=== PATIENT | female | born 1945 | race Caucasian/White ===

== ENCOUNTER 2016-03-14 18:08 | Inpatient (IN) | payer MEDICARE, BC ==
[2016-03-14] MEDS ORDERED: Aspirin Low Dose CHEW TAB* 81 MG PO ONE (18:42)
--- NOTE | 2016-03-14 19:02 | RAD ---
HISTORY: Chest pain COMPARISONS: None relevant VIEWS:1: Single frontal portable view of the chest at 7:01 PM FINDINGS: LINES AND TUBES: None. CARDIOMEDIASTINAL SILHOUETTE: The cardiomediastinal silhouette is normal for portable technique. PLEURA: The costophrenic angles are sharp. No pleural abnormalities are noted. LUNG PARENCHYMA: The lungs are clear. ABDOMEN: The upper abdomen is clear. There is no subphrenic gas. BONES AND SOFT TISSUES: No bone or soft tissue abnormalities are noted. IMPRESSION: NO ACTIVE CARDIOPULMONARY DISEASE.
[2016-03-14 19:07] LABS: Hematocrit 41 % (35-47); Hemoglobin 13.4 g/dl (12.0-16.0); Mean Corpuscular HGB Conc 33 g/dl (31-36); Mean Corpuscular Hemoglobin 30 pg (27-31); Mean Corpuscular Volume 91 fL (80-97); Mean Platelet Volume 10 um3 (7.4-10.4); Red Blood Count 4.45 10^6/ul (4.0-5.4); Red Cell Distribution Width 14 % (10.5-15); White Blood Count 13.7 10^3/ul (3.5-10.8)
[2016-03-14 19:23] LABS: Albumin 4.1 g/dL (3.2-5.2); BUN/Creatinine Ratio 19.7 (8-20); Calcium 9.5 mg/dL (8.6-10.3); EGFR Non-African American 81.6 (>60); Globulin 2.2 g/dL (2-4); Total Bilirubin 0.4 mg/dL (0.2-1.0); Total Protein 6.3 g/dL (6.4-8.9)
[2016-03-14 19:24] LABS: Potassium 4.2 mmol/L (3.5-5.0)
[2016-03-14 19:26] LABS: Troponin I 0.1 ng/mL (<0.04)
[2016-03-14] MEDS ORDERED: Nitroglycerin 2% OINT* 1 GM PAK TOPICAL ONE (19:31)
[2016-03-14] MEDS ORDERED: Heparin DRIP 25,000 UNITS(*) 25,000 UNITS/500 ML BAG ONE (19:40)
[2016-03-14] MEDS ORDERED: Heparin VIAL(*) 5000 UNITS/ML VIAL (FIVE THOUSAND) ONE (19:40)
[2016-03-14] MEDS: Heparin DRIP 25,000 UNITS(*) 25,000 UNITS/500 ML BAG IVPB ONE (19:49)
[2016-03-14] MEDS ORDERED: Heparin VIAL(*) 5000 UNITS/ML VIAL (FIVE THOUSAND) IV SCH ×2 (20:00→22:00)
[2016-03-14] MEDS ORDERED: nitroGLYCERIN DRIP* 250 ML ONE ×2 (20:48→21:26)
[2016-03-14] MEDS ORDERED: Metoprolol Tartrate IV* 1 MG/ML 5 ML VIAL ONE ×2 (20:49→22:28)
[2016-03-14] MEDS ORDERED: nitroGLYCERIN DRIP* 25,000 MCG in PREMIX* 0 ML IV SCH (21:00)
[2016-03-14] MEDS ORDERED: Morphine INJ* 2 MG/ML 1 ML CARPUJECT IV ONE (21:00)
[2016-03-14] MEDS ORDERED: LORazepam INJ* 2 MG/ML 1 ML VIAL IV PUSH ONE (21:00)
[2016-03-14] MEDS ORDERED: Metoprolol Tartrate IV* 1 MG/ML 5 ML VIAL IV ONE ×2 (21:01→21:09)
[2016-03-14] MEDS ORDERED: Morphine INJ* 2 MG/ML 1 ML CARPUJECT ONE (21:01)
[2016-03-14] MEDS ORDERED: Ticagrelor* 90 MG TAB PO ONE ×2 (21:02→21:03)
[2016-03-14] MEDS ORDERED: Morphine INJ* 10 MG/ML 1 ML CARPUJECT IV ONE (21:03)
[2016-03-14 21:09] LABS: Hematocrit 40 % (35-47); Hemoglobin 13.5 g/dl (12.0-16.0); Mean Corpuscular HGB Conc 33 g/dl (31-36); Mean Corpuscular Hemoglobin 30 pg (27-31); Mean Corpuscular Volume 91 fL (80-97); Mean Platelet Volume 10 um3 (7.4-10.4); Red Blood Count 4.45 10^6/ul (4.0-5.4); Red Cell Distribution Width 13 % (10.5-15); White Blood Count 17.6 10^3/ul (3.5-10.8)
[2016-03-14] MEDS ORDERED: Atorvastatin* 80 MG TAB PO ONE (21:17)
[2016-03-14] MEDS ORDERED: Lidocaine 1% INJ* 10 MG/ML 30 ML SDV ONE (21:25)
[2016-03-14] MEDS ORDERED: Midazolam* 1 MG/ML 5 ML VIAL (5 MG) ONE (21:25)
[2016-03-14] MEDS ORDERED: Iohexol 350 (CONTRAST) 200 ML MDV IV ONE ×2 (21:25→22:19)
[2016-03-14] MEDS ORDERED: fentaNYL* 50 MCG/ML 2 ML VIAL (100 MCG VIAL) ONE (21:25)
[2016-03-14] MEDS ORDERED: Heparin 2 UNITS/ML IVPREMIX* 3,000 ML IV ONE (21:25)
[2016-03-14 21:26] LABS: Albumin 3.9 g/dL (3.2-5.2); BUN/Creatinine Ratio 17.8 (8-20); Calcium 9.5 mg/dL (8.6-10.3); EGFR African American 101.7 (>60); Globulin 2.7 g/dL (2-4); Potassium 3.6 mmol/L (3.5-5.0); Total Bilirubin 0.4 mg/dL (0.2-1.0); Total Protein 6.6 g/dL (6.4-8.9)
[2016-03-14 21:33] LABS: Troponin I 0.48 ng/mL (<0.04)
[2016-03-14] MEDS ORDERED: Acetaminophen TAB* 325 MG PO PRN ×2 (21:37→23:12)
[2016-03-14] MEDS ORDERED: Ondansetron INJ* 2 MG/ML VIAL IV PRN (21:37)
[2016-03-14] MEDS ORDERED: Heparin DRIP 25,000 UNITS(*) 25,000 UNITS/500 ML BAG IVPB SCH (21:45)
[2016-03-14] MEDS ORDERED: Bivalirudin(*) 250 MG VIAL ONE (22:28)
--- NOTE | 2016-03-14 22:59 | ED ---
Christian Cooper Erika, scribed for Shaheen Denson MD on 03/14/16 at 1828 . HPI Chest Pain - HPI Summary HPI Summary: Patient is a 70-year-old female presenting to the ED with a CC of chest tightness with exertion, worse for the past week. Pt reports she has had similar symptoms in the past, but this past week they have been more frequent and more intense. She also reports that starting yesterday, pt also developed chest tightness once without exertion, but it quickly resolved. Pain is described as burning and is located mostly midsternal, but also across the bilateral anterior chest. Pain radiates straight through to her back. Pt was seen by her PCP yesterday, who prescribed NTG and recommended pt start taking a daily aspirin. She reports that tonight she took NTG, which at first did not alleviate the pain, but after EMS gave her another dose en route, pain improved. Pt reports a cough unchanged form baseline, and denies difficulty breathing. Pt has a stress test scheduled for tomorrow evening. Pt takes atenolol 25 mg 1x daily for HTN. Pt denies FHx stroke, cardiac disease. Pt does not smoke. - History of Current Complaint Chief Complaint: EDChestPainROMI Time Seen by Provider: 03/14/16 18:17 Hx Obtained From: Patient Onset/Duration: Started Days Ago, Atraumatic, Still Present Timing: Intermittent Initial Severity: Moderate Current Severity: Moderate Pain Intensity: 7 Pain Scale Used: 0-10 Numeric Chest Pain Location: Mid Sternal, Left Anterior, Right Anterior Chest Pain Radiates: Yes Chest Pain Radiates To:: Back Character: Burning Aggravating Factor(s): Exertion Alleviating Factor(s): NTG 123 Associated Signs and Symptoms: Negative: Shortness of Breath - Allergy/Home Medications Allergies/Adverse Reactions: Allergies Allergy/AdvReac Type Severity Reaction Status Date / Time Codeine Allergy Severe GI Upset Verified 03/14/16 18:26 Metronidazole [From Flagyl] Allergy Severe Rash Verified 03/14/16 18:26 Penicillins [PCN] Allergy Severe Rash Verified 03/14/16 18:26 Home Medications: Home Medications Aspirin Low Dose CHEW TAB* [Aspirin Low Dose TAB*] 81 mg PO DAILY 03/14/16 [ History Confirmed 03/14/16] PMH/Surg Hx/FS Hx/Imm Hx Cardiovascular History: Reports: Hx Hypertension - Cancer History Hx Radiation Therapy: No Infectious Disease History: No Infectious Disease History: Denies: Hx Clostridium Difficile, Hx Hepatitis, Hx Human Immunodeficiency Virus (HIV), Hx of Known/Suspected MRSA, Hx Shingles, Hx Tuberculosis, Hx Known/ Suspected VRE, Hx Known/Suspected VRSA, History Other Infectious Disease, Traveled Outside the [place] in Last 30 Days - Family History Known Family History: Positive: Hypertension Negative: Cardiac Disease Family History: Denies FHx stroke - Social History Alcohol Use: Rare Hx Substance Use: No Substance Use Type: Reports: None Hx Tobacco Use: No Smoking Status (MU): Never Smoked Tobacco Review of Systems Positive: Chest Pain - radiating to the back Positive: Cough - at baseline. Negative: Shortness Of Breath All Other Systems Reviewed And Are Negative: Yes Physical Exam - Summary Physical Exam Summary: General: Comfortable, pleasant, alert, no distress HEENT: Moist mucosa, TAVO Neck: Soft, supple, no adenopathy, no edema Heart: S1, S2, RRR. No murmurs, rubs, or gallops Lungs: Clear, breathing comfortably. No wheezes or rales Abdomen: Soft, flat, non-tender Extremities: No edema, no calf tenderness Neurological: A&Ox3 Psych: Logical, coherent Triage Information Reviewed: Yes Vital Signs On Initial Exam: Initial Vitals Temp Pulse Resp BP Pulse Ox 99.0 F 82 17 155/72 99 03/14/16 18:18 03/14/16 18:18 03/14/16 18:18 03/14/16 18:18 03/14/16 18:18 Vital Signs Reviewed: Yes Diagnostics - Vital Signs Vital Signs Temp Pulse Resp BP Pulse Ox 03/14/16 18:18 99.0 F 82 17 155/72 99 - Laboratory Lab Results: Lab Results 03/14/16 03/14/16 03/14/16 Range/Units 18:30 18:30 20:15 WBC 13.7 H (3.5-10.8) 10^3/ul RBC 4.45 (4.0-5.4) 10^6/ul Hgb 13.4 (12.0-16.0) g/dl Hct 41 (35-47) % MCV 91 (80-97) fL MCH 30 (27-31) pg MCHC 33 (31-36) g/dl RDW 14 (10.5-15) % Plt Count 227 (150-450) 10^3/ul MPV 10 (7.4-10.4) um3 Neut % (Auto) 80.6 (38-83) % Lymph % (Auto) 11.8 L (25-47) % Villalba % (Auto) 6.2 (1-9) % Eos % (Auto) 0.5 (0-6) % Baso % (Auto) 0.9 (0-2) % Absolute Neuts (auto) 11.0 H (1.5-7.7) 10^3/ul Absolute Lymphs (auto) 1.6 (1.0-4.8) 10^3/ul Absolute Monos (auto) 0.8 (0-0.8) 10^3/ul Absolute Eos (auto) 0.1 (0-0.6) 10^3/ul Absolute Basos (auto) 0.1 (0-0.2) 10^3/ul Absolute Nucleated RBC 0.01 10^3/ul Nucleated RBC % 0.1 INR (Anticoag Therapy) (0.89-1.11) APTT > 212.0 H* (26.0-36.3) seconds Sodium 139 (133-145) mmol/L Potassium 4.2 (3.5-5.0) mmol/L Chloride 106 (101-111) mmol/L Carbon Dioxide 21 L (22-32) mmol/L Anion Gap 12 H (2-11) mmol/L BUN 14 (6-24) mg/dL Creatinine 0.71 (0.51-0.95) mg/dL Est GFR ( Amer) 105.0 (>60) Est GFR (Non-Af Amer) 81.6 (>60) BUN/Creatinine Ratio 19.7 (8-20) Glucose 159 H (70-100) mg/dL Calcium 9.5 (8.6-10.3) mg/dL Total Bilirubin 0.40 (0.2-1.0) mg/dL AST 34 (13-39) U/L ALT 17 (7-52) U/L Alkaline Phosphatase 62 (34-104) U/L Total Creatine Kinase 35 (10-223) U/L CK-MB (CK-2) 2.0 (0.6-6.3) ng/mL Myoglobin (14.3-65.8) ng/mL Troponin I 0.10 H* (<0.04) ng/mL B-Natriuretic Peptide ( - 100) pg/mL Total Protein 6.3 L (6.4-8.9) g/dL Albumin 4.1 (3.2-5.2) g/dL Globulin 2.2 (2-4) g/dL Albumin/Globulin Ratio 1.9 (1-3) LDL Cholesterol Direct mg/dL 03/14/16 03/14/16 03/14/16 Range/Units 20:55 20:55 20:55 WBC 17.6 H (3.5-10.8) 10^3/ul RBC 4.45 (4.0-5.4) 10^6/ul Hgb 13.5 (12.0-16.0) g/dl Hct 40 (35-47) % MCV 91 (80-97) fL MCH 30 (27-31) pg MCHC 33 (31-36) g/dl RDW 13 (10.5-15) % Plt Count 252 (150-450) 10^3/ul MPV 10 (7.4-10.4) um3 Neut % (Auto) (38-83) % Lymph % (Auto) (25-47) % Villalba % (Auto) (1-9) % Eos % (Auto) (0-6) % Baso % (Auto) (0-2) % Absolute Neuts (auto) (1.5-7.7) 10^3/ul Absolute Lymphs (auto) (1.0-4.8) 10^3/ul Absolute Monos (auto) (0-0.8) 10^3/ul Absolute Eos (auto) (0-0.6) 10^3/ul Absolute Basos (auto) (0-0.2) 10^3/ul Absolute Nucleated RBC 10^3/ul Nucleated RBC % INR (Anticoag Therapy) 0.90 (0.89-1.11) APTT > 212.0 H* (26.0-36.3) seconds Sodium 138 (133-145) mmol/L Potassium 3.6 (3.5-5.0) mmol/L Chloride 107 (101-111) mmol/L Carbon Dioxide 20 L (22-32) mmol/L Anion Gap 11 (2-11) mmol/L BUN 13 (6-24) mg/dL Creatinine 0.73 (0.51-0.95) mg/dL Est GFR ( Amer) 101.7 (>60) Est GFR (Non-Af Amer) 79.0 (>60) BUN/Creatinine Ratio 17.8 (8-20) Glucose 117 H (70-100) mg/dL Calcium 9.5 (8.6-10.3) mg/dL Total Bilirubin 0.40 (0.2-1.0) mg/dL AST 31 (13-39) U/L ALT 17 (7-52) U/L Alkaline Phosphatase 65 (34-104) U/L Total Creatine Kinase 35 (10-223) U/L CK-MB (CK-2) 2.8 (0.6-6.3) ng/mL Myoglobin 33.1 (14.3-65.8) ng/mL Troponin I 0.48 H* (<0.04) ng/mL B-Natriuretic Peptide ( - 100) pg/mL Total Protein 6.6 (6.4-8.9) g/dL Albumin 3.9 (3.2-5.2) g/dL Globulin 2.7 (2-4) g/dL Albumin/Globulin Ratio 1.4 (1-3) LDL Cholesterol Direct 141 mg/dL 03/14/16 Range/Units 20:55 WBC (3.5-10.8) 10^3/ul RBC (4.0-5.4) 10^6/ul Hgb (12.0-16.0) g/dl Hct (35-47) % MCV (80-97) fL MCH (27-31) pg MCHC (31-36) g/dl RDW (10.5-15) % Plt Count (150-450) 10^3/ul MPV (7.4-10.4) um3 Neut % (Auto) (38-83) % Lymph % (Auto) (25-47) % Villalba % (Auto) (1-9) % Eos % (Auto) (0-6) % Baso % (Auto) (0-2) % Absolute Neuts (auto) (1.5-7.7) 10^3/ul Absolute Lymphs (auto) (1.0-4.8) 10^3/ul Absolute Monos (auto) (0-0.8) 10^3/ul Absolute Eos (auto) (0-0.6) 10^3/ul Absolute Basos (auto) (0-0.2) 10^3/ul Absolute Nucleated RBC 10^3/ul Nucleated RBC % INR (Anticoag Therapy) (0.89-1.11) APTT (26.0-36.3) seconds Sodium (133-145) mmol/L Potassium (3.5-5.0) mmol/L Chloride (101-111) mmol/L Carbon Dioxide (22-32) mmol/L Anion Gap (2-11) mmol/L BUN (6-24) mg/dL Creatinine (0.51-0.95) mg/dL Est GFR ( Amer) (>60) Est GFR (Non-Af Amer) (>60) BUN/Creatinine Ratio (8-20) Glucose (70-100) mg/dL Calcium (8.6-10.3) mg/dL Total Bilirubin (0.2-1.0) mg/dL AST (13-39) U/L ALT (7-52) U/L Alkaline Phosphatase (34-104) U/L Total Creatine Kinase (10-223) U/L CK-MB (CK-2) (0.6-6.3) ng/mL Myoglobin (14.3-65.8) ng/mL Troponin I (<0.04) ng/mL B-Natriuretic Peptide 28 ( - 100) pg/mL Total Protein (6.4-8.9) g/dL Albumin (3.2-5.2) g/dL Globulin (2-4) g/dL Albumin/Globulin Ratio (1-3) LDL Cholesterol Direct mg/dL Result Diagrams: 03/14/16 20:55 03/14/16 20:55 Lab Statement: Any lab studies that have been ordered have been reviewed, and results considered in the medical decision making process. - Radiology CXR Radiology Interpretation Completed By: Radiologist - IMPRESSION: NO ACTIVE CARDIOPULMONARY DISEASE. - EKG 18:14 Cardiac Rate: NL - at 76 bpm EKG Rhythm: Sinus Rhythm Ectopy: PACs EKG Interpretation: Questionable ST depression V4-V6 19:34 Cardiac Rate: Tachycardia - at 106 bpm EKG Rhythm: Sinus Tachycardia EKG Interpretation: Still shows ST flattening and questionable depression in lateral leads 20:48 Cardiac Rate: NL - at 93 bpm EKG Rhythm: Sinus Rhythm EKG Interpretation: ST elevations in aVR and V1, worsening depressions inferior lateral leads Re-Evaluation - Re-Evaluation First Eval Re-Evaluation Time: 19:39 Comment: Discussed lab and imaging results and need for admission. Pt denies any pain at this time. Second Eval Re-Evaluation Time: 20:56 Comment: She started having chest pain again as Jude Colbert was taking a history. Repeat EKG shows ST elevations in aVR and V1, and worsening depressions inferior lateral leads. STEMI called at this time Chest Pain Course/Dx - Course Assessment/Plan: She had a concerning history given that the chest pain was exertional and crescendo in nature. She presented asymptomatic, but her troponin had increased 0.10. 2 EKGs did not support an DC, however, when she was waiting for admission she had another episode, repeat EKG had changed significantly. Dr. Tipton was immediately called, and we are aggressively treating with Nitro drip, Lopressor, morphine, and Brilinta added to the prior regimen. - Diagnoses Provider Diagnoses: Unstable angina, Acute DC During the Visit The Following Alert/Code Occurred: STEMI - Provider Notifications Discussed Care Of Patient With: Dr. Carrasco (cardiology) at 20:01 - will consult in the morning. Dr. Anguiano (hospitalist) at 20:17 - agrees to admit. Dr. Tipton (interventionalist) at 20:59 - would like us to add Brilinta Instructed by Provider To: Admit As Inpatient - Critical Care Time Critical Care Time: 30-74 min - 60 minutes Discharge - Discharge Plan Condition: Stable Disposition: ADMITTED TO [facility] The documentation as recorded by the Christian vidal Erika accurately reflects the service I personally performed and the decisions made by me, Shaheen Denson MD.
[2016-03-14] MEDS ORDERED: Zolpidem TAB* 5 MG PO PRN (23:12)
[2016-03-14] MEDS ORDERED: fentaNYL* 50 MCG/ML 2 ML VIAL (100 MCG VIAL) IV PRN (23:12)
[2016-03-14] MEDS ORDERED: Docusate CAP* 100 MG PO PRN (23:12)
[2016-03-14] MEDS ORDERED: Nitroglycerin TAB 0.4 MG* 0.4 MG TAB SL PRN (23:12)
[2016-03-14] MEDS ORDERED: NS 0.9% 1000 ML* 1,000 ML IV SCH (23:15)
[2016-03-15 05:50] LABS: Albumin 3.7 g/dL (3.2-5.2); BUN/Creatinine Ratio 14.1 (8-20); Calcium 9.1 mg/dL (8.6-10.3); EGFR African American 118.3 (>60); Globulin 2.2 g/dL (2-4); Potassium 3.6 mmol/L (3.5-5.0); Total Bilirubin 0.8 mg/dL (0.2-1.0); Total Protein 5.9 g/dL (6.4-8.9)
[2016-03-15 05:54] LABS: Troponin I 1.51 ng/mL (<0.04)
[2016-03-15] MEDS ORDERED: Metoprolol Tartrate TAB* 25 MG PO SCH ×2 (07:30→09:00)
--- NOTE | 2016-03-15 07:45 | HP ---
HISTORY AND PHYSICAL: DATE OF ADMISSION: 03/14/2016 PRIMARY CARE PHYSICIAN: Dr. Iniguez. CONSULTING INTERVENTIONALIST: Dr. Tipton. ATTENDING PHYSICIAN: Walter Anguiano MD * (dictated by PRITESH Arellano) CHIEF COMPLAINT: Chest pain. HISTORY OF PRESENTING ILLNESS: Ms Nguyễn is a 60-year-old female patient. She has a history of GERD, hypertension, glaucoma, and history of macular degeneration. She comes into the ER today stating that over the last week she has had progressive worsening chest discomfort with exertion. She has noticed that with minimal exertion now she has a significant amount of chest discomfort and pressure across the chest and goes down the left arm into the jaw, at times sometimes she becomes nauseated and feels short of breath. She saw her primary yesterday. She was not exhibiting the symptoms but she noticed there was concern she had subtle EKG change and she was set up for a stress test according to the patient. The patient today went to [facility] and walking back [place] [employer], she developed a chest pressure, when she sat down in a friend's car and waiting for her to pick her up, the pressure went away, but then she noticed just getting up to the phone this afternoon, she had crushing chest pressure, she had to lie down, she took 3 nitro at home, the nitro did not relieve the pain, so she called 911 immediately and came into the hospital. She took an aspirin on her way in. She was given a fourth nitro and Zofran en route to the hospital. The pain did go away and she was evaluated initially in the ER. It was noted that her trop was up, her story was convincing for acute coronary syndrome. We were asked initially to evaluate for admission. While I was admitting her, she started having a significant amount of chest pressure and a STEMI was called as she had a significant EKG changes and the patient was taken to the corn lab technician emergently. She told me she has not had any recent nausea, vomiting, diarrhea, or any recent fevers but there was obvious concern that she was having acute coronary syndrome and she was brought emergently to corn lab technician. REVIEW OF SYSTEMS: No documented fever. No significant weight change or double vision. No discharge. No rhinorrhea. No sore throat or thyroid enlargement. There is chest pressure. There is no orthopnea. No nocturnal dyspnea . No abdominal pain. No nausea or vomiting. No dysuria. No frequency. No loss of consciousness. No pruritus. No skin ulcerations. Review of 14 systems completed, all others negative. PAST MEDICAL HISTORY: Significant for, 1. GERD. 2. Hypertension. 3. Glaucoma. 4. Macular degeneration. PAST SURGICAL HISTORY: She has had tonsillectomy. FAMILY HISTORY: Father had an LA. Mother's history not reviewed, noncontributory. SOCIAL HISTORY: She does not smoke, does not drink. Surrogate decision maker is her . ALLERGIES TO MEDICATIONS: Include CODEINE, FLAGYL, PENICILLIN. HOME MEDICATIONS: According to the list that was provided include, 1. Famotidine 20 mg p.o. twice a day. 2. B12 1000 mcg p.o. daily. 3. Vitamin D3 5000 units p.o. daily. 4. Astepro one spray nasally twice a day as needed. 5. Aspirin 81 mg daily. 6. Latanoprost one drop both eyes at bedtime. 7. Atenolol 25 mg p.o. daily. 8. Timolol one drop both eyes twice a day. PHYSICAL EXAMINATION GENERAL: At this time, Ms. Nguyễn is a 70-year-old female patient. She does appear to be in acute distress. She was having chest pressure when I actually spoke to her. VITAL SIGNS: Blood pressure 123/81 with a pulse 94, respirations 19, O2 sat 98% , temperature was 99.0. LUNGS: Clear to auscultation bilaterally. No wheezes, rales, or rhonchi. HEART: Sounds S1, S2. Regular rate and rhythm. No murmurs, rubs, or gallops. ABDOMEN: Soft, flat, nontender. Bowel sounds present. EXTREMITIES: Pulses 2+ throughout. She is able to move all 4 extremities with 5/5 strength. NEUROLOGIC: The patient is awake, alert, and oriented x3. Tongue midline. Elevator Service Mechanic were equal. No gross focal deficits. SKIN: Grossly intact. LABORATORY DATA AND IMAGING STUDIES: Today revealed a WBC of 17.6, RBC of 4.45 , hemoglobin 13.5, hematocrit of 40, platelet count of 282. Her INR was 0.9. Sodium 133, potassium 3.6, chloride 107, bicarb 20, BUN 13, creatinine 0.73, glucose 117, calcium 9.5, total bili 0.4, AST 31, ALT 17, alk phos 55, CK 35, CK -MB of 2.8, and initial troponin was 0.1, repeat was 0.48. Albumin is 3.9. Initial EKG did show normal sinus rhythm. She had subtle slight depression in V4 and V5. No ST elevation. She had a rate of 106. Repeat EKG during my evaluation when she was having crushing chest pain showed significant new ST depressions. She had elevation in V1 and aVR as well with significant depression in V2. There was significant change from previous EKG. She had a chest x-ray obtained today, which revealed no active cardiopulmonary disease. Old medical records were reviewed. ASSESSMENT AND PLAN: Ms. Nguyễn is a 70-year-old female patient coming into the ER today with complaints of chest discomfort. On my evaluation, she was having significant discomfort. Repeat EKG was obtained and there was concern for possible elevation in aVR and V1. STEMI was called and she did have reciprocal ST depression. The patient was evaluated by Dr. Tipton and taken to the corn lab technician. We were asked to evaluate to help with admission, she will be admitted under under an observation status for: 1. STEMI. I will defer the management with Dr. Tipton and his team but prior to his arrival, she was on heparin drip. I had started her on nitro. I had given her two doses of IV beta-lili to try to get her heart rate close to 60 and to get her blood pressure down, we gave her 2 of morphine by the time Dr. Tipton got here. The STEMI was called at late around 2054 and about 15 minutes later after initial interventions were obtained, the pressure was going away and by the time Dr. Tipton got here, the chest pain was almost gone. She states she was feeling better. The patient was given aspirin loaded with Brilinta, and she was also given a dose of Lipitor here in the ER, and she will be take to cath and we will defer further management post cath to Dr. Tipton. I am going to cycle her troponins, we will get an echo in the morning. We will get an EKG as well in the morning and I am also going to get a lipid panel, A1c. 2. GERD. Continue Pepcid therapy. 3. Hypertension. I have ordered her b.i.d. Lopressor. 4. Glaucoma. Continue meds as prescribed. 5. Macular degeneration, continue meds as prescribed. 6. DVT prophylaxis. She will be on a heparin drip and I will defer further DVT prophylaxis to Dr. Tipton, but heparin subcu should be appropriate. 7. Fluids, electrolytes, and nutrition. I will defer to Dr. Tipton and his team. 8. Code status. Full code. TIME SPENT: Time spent on the admission was 90 minutes, greater than half the time was spent [id number] with the patient obtaining my history and physical; the other half time was spent going over the plan of care with the patient and implementing plan of care. I did discuss the plan of care with my attending, Dr. Anguiano, he is in agreement. JAYLA ERWIN NP CC: Dr. Iniguez; Dr. Tipton * [id number]/CPS #: [id number] [facility]
[2016-03-15] MEDS: Famotidine TAB* 20 MG PO SCH ×2 (07:54→20:20)
[2016-03-15] MEDS: Metoprolol Tartrate TAB* 25 MG PO SCH ×4 (07:55→20:21)
[2016-03-15] MEDS: Aspirin Low Dose CHEW TAB* 81 MG PO SCH (07:55)
[2016-03-15] MEDS: Cyanocobalamin TAB* 500 MCG PO SCH (07:55)
[2016-03-15] MEDS: Captopril TAB* 12.5 MG PO SCH ×4 (07:56→20:21)
[2016-03-15] MEDS: Ticagrelor* 90 MG TAB PO SCH ×2 (07:56→20:21)
[2016-03-15] MEDS: Timolol 0.25% OPHTH.SOLN* BTL BOTH EYES SCH ×2 (08:00→21:29)
--- NOTE | 2016-03-15 09:39 | PN ---
Subjective Date of Service: 03/15/16 Interval History: . Patient reports no further CP. Denies SOB. Feels a little weak this morning but overall feels good. Patient states she is interested in changing her diet. Objective Active Medications: Acetaminophen (Tylenol Tab*) 650 mg PO Q4H PRN PRN Reason: FEVER/PAIN Last Admin: 03/15/16 02:46 Dose: 650 mg Acetaminophen (Tylenol Tab*) 650 mg PO Q4H PRN PRN Reason: HEADACHE/PAIN Aspirin (Aspirin Low Dose Tab*) 81 mg PO DAILY [facility] Last Admin: 03/15/16 07:55 Dose: 81 mg Atorvastatin Calcium (Lipitor*) 80 mg PO 1700 [facility] Captopril (Capoten Tab*) 6.25 mg PO TID [facility] Last Admin: 03/15/16 07:56 Dose: 6.25 mg Cyanocobalamin (Vitamin B12 Tab*) 1,000 mcg PO DAILY [facility] Last Admin: 03/15/16 07:55 Dose: 1,000 mcg Docusate Sodium (Colace Cap*) 100 mg PO DAILY PRN PRN Reason: CONSTIPATION Famotidine (Pepcid Tab*) 20 mg PO BID [facility] Last Admin: 03/15/16 07:54 Dose: 20 mg Fluticasone Propionate (Flonase Nasal [place] 50mcg*) 2 spray BOTH NARES DAILY [facility] Nitroglycerin/Dextrose 25,000 (mcg/ IV Solution) 250 mls @ 6 mls/hr IV .( Initial Rate) [facility] PRN Reason: 10 MCG/MIN Last Admin: 03/14/16 21:02 Dose: 6 mls/hr Sodium Chloride (Ns 0.9% 1000 Ml*) 1,000 mls @ 100 mls/hr IV .per rate [facility] Last Admin: 03/15/16 00:18 Dose: 100 mls/hr Latanoprost (Xalatan 0.005%*) 1 drop BOTH EYES BEDTIME [facility] Metoprolol Tartrate (Lopressor Tab*) 25 mg PO TID [facility] Last Admin: 03/15/16 07:55 Dose: 25 mg Nitroglycerin (Nitroglycerin Tab 0.4 Mg*) 0.4 mg SL Q5M PRN PRN Reason: ANGINA Ondansetron HCl (Zofran Inj*) 4 mg IV Q6H PRN PRN Reason: NAUSEA Ticagrelor (Brilinta*) 90 mg PO BID [facility] Last Admin: 03/15/16 07:56 Dose: 90 mg Timolol Maleate (Timoptic Ophth.Soln 0.25%) 1 drop BOTH EYES BID [facility] Last Admin: 03/15/16 08:00 Dose: 1 drop Zolpidem Tartrate (Ambien Tab*) 5 mg PO BEDTIME PRN PRN Reason: INSOMNIA Vital Signs 03/15/16 03/15/16 03/15/16 08:50 08:55 09:00 Temperature Pulse Rate 88 89 101 Respiratory 16 19 20 Rate Blood Pressure (mmHg) O2 Sat by Pulse 99 100 100 Oximetry 03/15/16 03/15/16 03/15/16 09:05 09:10 09:15 Temperature Pulse Rate 95 95 Respiratory 19 20 20 Rate Blood Pressure 126/83 (mmHg) O2 Sat by Pulse 100 98 Oximetry 03/15/16 09:20 Temperature Pulse Rate 96 Respiratory 19 Rate Blood Pressure (mmHg) O2 Sat by Pulse 98 Oximetry Oxygen Devices in Use Now: None Appearance: 70 yo female sitting up in a chair in NAD. A+O x3 Eyes: No Scleral Icterus, PERRLA Ears/Nose/Mouth/Throat: NL Teeth, Lips, Gums, Mucous Membranes Moist Neck: NL Appearance and Movements; NL JVP, Trachea Midline Respiratory: Symmetrical Chest Expansion and Respiratory Effort, Clear to Auscultation Cardiovascular: NL Sounds; No Murmurs; No JVD, RRR, No Edema Abdominal: NL Sounds; No Tenderness; No Distention Lymphatic: No Cervical Adenopathy Extremities: No Edema, No Clubbing, Cyanosis, - - right groin cath site with CD+ I dressing - some area of ecchymosis noted. soft, no hematoma noted Skin: No Rash or Ulcers, No Nodules or Sclerosis Neurological: Alert and Oriented x 3 Lines/Tubes/Other Access: Clean, Dry and Intact Peripheral IV Nutrition: Taking PO's Result Diagrams: 03/14/16 20:55 03/15/16 05:20 Additional Lab and Data: Lab Results 03/14/16 03/14/16 03/14/16 Range/Units 18:30 18:30 20:15 WBC 13.7 H (3.5-10.8) 10^3/ul RBC 4.45 (4.0-5.4) 10^6/ul Hgb 13.4 (12.0-16.0) g/dl Hct 41 (35-47) % MCV 91 (80-97) fL MCH 30 (27-31) pg MCHC 33 (31-36) g/dl RDW 14 (10.5-15) % Plt Count 227 (150-450) 10^3/ul MPV 10 (7.4-10.4) um3 Neut % (Auto) 80.6 (38-83) % Lymph % (Auto) 11.8 L (25-47) % [place] % (Auto) 6.2 (1-9) % Eos % (Auto) 0.5 (0-6) % Baso % (Auto) 0.9 (0-2) % Absolute Neuts (auto) 11.0 H (1.5-7.7) 10^3/ul Absolute Lymphs (auto) 1.6 (1.0-4.8) 10^3/ul Absolute Monos (auto) 0.8 (0-0.8) 10^3/ul Absolute Eos (auto) 0.1 (0-0.6) 10^3/ul Absolute Basos (auto) 0.1 (0-0.2) 10^3/ul Absolute Nucleated RBC 0.01 10^3/ul Nucleated RBC % 0.1 INR (Anticoag Therapy) (0.89-1.11) APTT > 212.0 H* (26.0-36.3) seconds Sodium 139 (133-145) mmol/L Potassium 4.2 (3.5-5.0) mmol/L Chloride 106 (101-111) mmol/L Carbon Dioxide 21 L (22-32) mmol/L Anion Gap 12 H (2-11) mmol/L BUN 14 (6-24) mg/dL Creatinine 0.71 (0.51-0.95) mg/dL Est GFR ( Amer) 105.0 (>60) Est GFR (Non-Af Amer) 81.6 (>60) BUN/Creatinine Ratio 19.7 (8-20) Glucose 159 H (70-100) mg/dL Calcium 9.5 (8.6-10.3) mg/dL Total Bilirubin 0.40 (0.2-1.0) mg/dL AST 34 (13-39) U/L ALT 17 (7-52) U/L Alkaline Phosphatase 62 (34-104) U/L Total Creatine Kinase 35 (10-223) U/L CK-MB (CK-2) 2.0 (0.6-6.3) ng/mL Myoglobin (14.3-65.8) ng/mL Troponin I 0.10 H* (<0.04) ng/mL B-Natriuretic Peptide ( - 100) pg/mL Total Protein 6.3 L (6.4-8.9) g/dL Albumin 4.1 (3.2-5.2) g/dL Globulin 2.2 (2-4) g/dL Albumin/Globulin Ratio 1.9 (1-3) LDL Cholesterol Direct mg/dL 03/14/16 03/14/16 03/14/16 Range/Units 20:55 20:55 20:55 WBC 17.6 H (3.5-10.8) 10^3/ul RBC 4.45 (4.0-5.4) 10^6/ul Hgb 13.5 (12.0-16.0) g/dl Hct 40 (35-47) % MCV 91 (80-97) fL MCH 30 (27-31) pg MCHC 33 (31-36) g/dl RDW 13 (10.5-15) % Plt Count 252 (150-450) 10^3/ul MPV 10 (7.4-10.4) um3 Neut % (Auto) (38-83) % Lymph % (Auto) (25-47) % [place] % (Auto) (1-9) % Eos % (Auto) (0-6) % Baso % (Auto) (0-2) % Absolute Neuts (auto) (1.5-7.7) 10^3/ul Absolute Lymphs (auto) (1.0-4.8) 10^3/ul Absolute Monos (auto) (0-0.8) 10^3/ul Absolute Eos (auto) (0-0.6) 10^3/ul Absolute Basos (auto) (0-0.2) 10^3/ul Absolute Nucleated RBC 10^3/ul Nucleated RBC % INR (Anticoag Therapy) 0.90 (0.89-1.11) APTT > 212.0 H* (26.0-36.3) seconds Sodium 138 (133-145) mmol/L Potassium 3.6 (3.5-5.0) mmol/L Chloride 107 (101-111) mmol/L Carbon Dioxide 20 L (22-32) mmol/L Anion Gap 11 (2-11) mmol/L BUN 13 (6-24) mg/dL Creatinine 0.73 (0.51-0.95) mg/dL Est GFR ( Amer) 101.7 (>60) Est GFR (Non-Af Amer) 79.0 (>60) BUN/Creatinine Ratio 17.8 (8-20) Glucose 117 H (70-100) mg/dL Calcium 9.5 (8.6-10.3) mg/dL Total Bilirubin 0.40 (0.2-1.0) mg/dL AST 31 (13-39) U/L ALT 17 (7-52) U/L Alkaline Phosphatase 65 (34-104) U/L Total Creatine Kinase 35 (10-223) U/L CK-MB (CK-2) 2.8 (0.6-6.3) ng/mL Myoglobin 33.1 (14.3-65.8) ng/mL Troponin I 0.48 H* (<0.04) ng/mL B-Natriuretic Peptide ( - 100) pg/mL Total Protein 6.6 (6.4-8.9) g/dL Albumin 3.9 (3.2-5.2) g/dL Globulin 2.7 (2-4) g/dL Albumin/Globulin Ratio 1.4 (1-3) LDL Cholesterol Direct 141 mg/dL 03/14/16 Range/Units 20:55 WBC (3.5-10.8) 10^3/ul RBC (4.0-5.4) 10^6/ul Hgb (12.0-16.0) g/dl Hct (35-47) % MCV (80-97) fL MCH (27-31) pg MCHC (31-36) g/dl RDW (10.5-15) % Plt Count (150-450) 10^3/ul MPV (7.4-10.4) um3 Neut % (Auto) (38-83) % Lymph % (Auto) (25-47) % [place] % (Auto) (1-9) % Eos % (Auto) (0-6) % Baso % (Auto) (0-2) % Absolute Neuts (auto) (1.5-7.7) 10^3/ul Absolute Lymphs (auto) (1.0-4.8) 10^3/ul Absolute Monos (auto) (0-0.8) 10^3/ul Absolute Eos (auto) (0-0.6) 10^3/ul Absolute Basos (auto) (0-0.2) 10^3/ul Absolute Nucleated RBC 10^3/ul Nucleated RBC % INR (Anticoag Therapy) (0.89-1.11) APTT (26.0-36.3) seconds Sodium (133-145) mmol/L Potassium (3.5-5.0) mmol/L Chloride (101-111) mmol/L Carbon Dioxide (22-32) mmol/L Anion Gap (2-11) mmol/L BUN (6-24) mg/dL Creatinine (0.51-0.95) mg/dL Est GFR ( Amer) (>60) Est GFR (Non-Af Amer) (>60) BUN/Creatinine Ratio (8-20) Glucose (70-100) mg/dL Calcium (8.6-10.3) mg/dL Total Bilirubin (0.2-1.0) mg/dL AST (13-39) U/L ALT (7-52) U/L Alkaline Phosphatase (34-104) U/L Total Creatine Kinase (10-223) U/L CK-MB (CK-2) (0.6-6.3) ng/mL Myoglobin (14.3-65.8) ng/mL Troponin I (<0.04) ng/mL B-Natriuretic Peptide 28 ( - 100) pg/mL Total Protein (6.4-8.9) g/dL Albumin (3.2-5.2) g/dL Globulin (2-4) g/dL Albumin/Globulin Ratio (1-3) LDL Cholesterol Direct mg/dL Microbiology and Other Data: Microbiology 03/15/16 02:00 Nasal Screen MRSA (PCR)(AMINAH) - Final Nasal Mrsa Negative Assess/Plan/Problems-Billing Assessment: Ms. Nguyễn is a 70 yo female with a PMH of HTN and GERD who presented to the ED with CP found to have a STEMI - Patient Problems (1) STEMI (ST elevation myocardial infarction) Comment: - stent to the LAD - Nitro gtt turned off this am. - continue BB, statin, ASA, Brillinta - HbgA1C pending (2) GERD (gastroesophageal reflux disease) Comment: - asymptomatic - continue pepcid (3) Full code status Status and Disposition: Inpatient. Continue inpatient monitoring. Possible DC home tomorrow.
[2016-03-15] MEDS: Fluticasone NASAL SPRAY 50MCG* 16 gm SPRAY BTL BOTH NARES SCH (10:34)
[2016-03-15] MEDS ORDERED: Saline NASAL SPRAY 0.65%* BTL BOTH NARES PRN (10:38)
[2016-03-15 11:04] LABS: Hematocrit 37 % (35-47); Hemoglobin 12.2 g/dl (12.0-16.0); Mean Corpuscular HGB Conc 33 g/dl (31-36); Mean Corpuscular Hemoglobin 30 pg (27-31); Mean Corpuscular Volume 90 fL (80-97); Mean Platelet Volume 10 um3 (7.4-10.4); Red Blood Count 4.07 10^6/ul (4.0-5.4); Red Cell Distribution Width 13 % (10.5-15); White Blood Count 12.1 10^3/ul (3.5-10.8)
[2016-03-15 11:33] LABS: Troponin I 1.24 ng/mL (<0.04)
--- NOTE | 2016-03-15 13:36 | ECHO ---
Patient: ALICIA KEARNS [facility] Rec#: [id number] : 1945 Date: 03/15/2016 Age: 70y Height: 157.5 cm / 62.0 in Weight: 55.3 kg / 121.9 lbs Sex: F BSA: 1.6 Room#: ICU 6 Admit Date#: 03/14/2016 Type: Inpatient Referring: Tal Tipton MD Reading: Brendan Carrasco MD Customer Accounts Advisor: Leanne Alcocer RN RDCS CC: Eduardo Iniguez MD Transthoracic Echocardiogram Indication: STEMI, S/P PCI BP: 150/86 HR: 76 Rhythm: NSR Findings History: HTN, recent chest pain with exertion Technical Comments: The study quality is fair. The study is technically limited due to poor acoustic windows. Left Ventricle: The left ventricular chamber size is decreased. There is no left ventricular hypertrophy. Left ventricular systolic function is at the lower limits of normal. The estimated ejection fraction is 50-55%. There is an E to A reversal in the mitral valve flow pattern suggestive of diastolic dysfunction. The mid anterior, and apical anterior wall segments are hypokinetic (score 2). Overall wallmotion score index is 2.00 Left Atrium: The left atrial chamber size is normal. Right Ventricle: The right ventricular chamber size and systolic function are within normal limits. Right Atrium: The right atrial cavity size is normal. Aortic Valve: The aortic valve structure is not well visualized. The aortic valve leaflets are mildly thickened. There is no evidence of aortic regurgitation. There is no evidence of aortic stenosis. Mitral Valve: The mitral valve leaflets are mildly thickened. There is trace to mild mitral regurgitation. There is no evidence of mitral stenosis. Tricuspid Valve: The tricuspid valve leaflets are normal. There is trace tricuspid regurgitation. Unable to estimate the right ventricular systolic pressure. Pulmonic Valve: The pulmonic valve structure is not well visualized. There is no evidence of pulmonic regurgitation. There is no pulmonic stenosis. Pericardium: There is no significant pericardial effusion. A pericardial fat pad is visualized. Aorta: The ascending aorta is not well visualized. There is no dilatation of the aortic arch. The aortic root is normal in size. Pulmonary Artery: The main pulmonary artery is not well visualized. Venous: The inferior vena cava appears normal in size. There is a greater than 50% respiratory change in the inferior vena cava dimension. Conclusions The mid anterior, and apical anterior wall segments are hypokinetic (score 2). The aortic valve leaflets are mildly thickened. There is no evidence of aortic stenosis. There is trace to mild mitral regurgitation. There is trace tricuspid regurgitation. Unable to estimate the right ventricular systolic pressure. There is no significant pericardial effusion. Measurements Name Value Normal Range RVDdMajor (2D) 2.8 cm (2.2 - 4.4) RAd ISD 4CH 4.3 cm (3.4 - 4.9) RA (A4C)W 3.2 cm (2.9 - 4.6) IVSd (2D) 1 cm (0.6 - 1) LVPWd (2D) 1 cm (0.6 - 1) LVIDd (2D) 3.5 cm (3.6 - 5.4) LVIDs (2D) 2.3 cm - LV FS (2D) 34 % (25 - 45) Aortic Annulus 1.8 cm (1.4 - 2.6) Ao root diameter (2D) 2.5 cm (2.1 - 3.5) Aortic arch 2.3 cm (1.8 - 3.4) LA dimension (AP) 2D 2.7 cm (2.3 - 3.8) LAd ISD 4CH 4.5 cm (2.9 - 5.3) LA ISD 4CH W 3.5 cm (2.5 - 4.5) Name Value Normal Range LA ESV SP 4CH (A/L) 39 ml - LA ESV SP 2CH (A/L) 27 ml - LA ESV BP (A/L) 33 ml - LA ESV BP (A/L) index 21 ml/m2 - LA ESV SP 4CH (MOD) 36 ml - LA ESV SP 2CH (MOD) 26 ml - Name Value Normal Range MV E-wave Vmax 0.73 m/sec - MV deceleration time 192 msec - MV A-wave Vmax 0.99 m/sec - MV E:A ratio 0.7 ratio - LV septal e' Vmax 0.08 m/sec - LV lateral e' Vmax 0.09 m/sec - LV E:e' septal ratio 9.1 ratio - LV E:e' lateral ratio 8.1 ratio - Name Value Normal Range AV Vmax 1.5 m/sec - LVOT Vmax 1 m/sec - ZHEN Vmax 0.58 m/sec - Name Value Normal Range IVC diameter 1.2 cm - Name Value Normal Range PV Vmax 0.92 m/sec - Wallmotion BAS Not Seen BA Not Seen BAL Not Seen RAYMUNDO Not Seen BI Not Seen BIS Not Seen MAS Not Seen MA Hypokinetic MAL Not Seen MIL Not Seen MD Not Seen MIS Not Seen Not Seen AA Hypokinetic AL Not Seen AI Not Seen APEX Not Seen
[2016-03-15] MEDS ORDERED: Ibuprofen TAB* 400 MG PO PRN (13:58)
--- NOTE | 2016-03-15 15:38 | CONS ---
CARDIOLOGY CONSULTATION NOTE: DATE OF CONSULT: 03/14/16 INDICATION FOR CONSULT: The patient with acute coronary syndrome, non-ST elevation myocardial infarction with continued chest discomfort. HISTORY OF PRESENT ILLNESS: The patient is a pleasant 70-year-old female with history of gastroesophageal reflux, hypertension, but no history of prior myocardial infarction, congestive heart failure, significant heart rhythm disturbance, no history of coronary artery disease. The patient over the past week or so, has had progressive unstable symptomatology with worsening chest discomfort with exertion with minimal degree of exertion. Just going up and down the stairs would produce discomfort which had gotten more progressive in nature. She had seen her family doctor the day before and had subtle EKG changes and a stress test was set up with Dr. Carrasco to be performed on . She developed recurrent symptoms on the day of admission becoming more crushing in nature. She took 3 nitroglycerin at home with no significant relief. She called 911 and was brought to the hospital. In the emergency room , initially the symptoms seemed to go away but only to return again with significant discomfort. The EKG had changing worsening ST-segment depression at multiple leads with minimal J-point elevation in one precordial lead V1 only and an aVR. STEMI alert was called. When I saw the patient, she was still having ongoing chest discomfort. She denied any nausea, vomiting, or profound diaphoresis. She had some degree of shortness of breath with this. The risks and benefits of cardiac catheterization were explained to her. She had already received the heparin bolus and had gotten 180 mg of ticagrelor in addition to aspirin and beta-lili therapy. She wished to proceed with cardiac catheterization. PAST MEDICAL HISTORY: Significant for GERD, hypertension, macular degeneration , and glaucoma. PAST SURGICAL HISTORY: Tonsillectomy. MEDICATIONS: At home, include: 1. Famotidine 20 mg twice a day. 2. B12 1000 mcg a day. 3. Vitamin D 5000 units daily. 4. Aspirin 81 mg a day. 5. Atenolol 25 mg daily. 6. Latanoprost eye drops one to both eyes b.i.d. 7. Timolol eye drops b.i.d. ALLERGIES: She has allergies to CODEINE, FLAGYL, and PENICILLIN. FAMILY HISTORY: Father had an [place]. SOCIAL HISTORY: She does not smoke, does not drink. REVIEW OF SYSTEMS: Pertinent to proceeding with cardiac catheterization included the fact there is no renal insufficiency, no history of stroke, TIA. No history of hematochezia, hematemesis, or hematuria. No other major recent surgeries. She is a [employer] patient. PHYSICAL EXAM: When I saw revealed an anxious female, still with ongoing chest discomfort. Blood pressure 140s/80s, pulse was in the 80s, respirations 20, O2 saturation 98%. Neck was supple. No increased JVP. Carotid with good upstroke and volume without bruits. Conjunctivae are pink. Sclerae clear. Lungs revealed no accessory muscle usage with good excursion. Lungs are clear to A and P. Heart revealed no visible heaves. No palpable heaves or thrills. Normal S1, S2. No significant systolic or diastolic murmur. Abdomen is soft, nontender without organomegaly. Extremities without edema. Peripheral pulses are intact. Femoral pulses noted without bruits. Neuro: The patient is alert and oriented with normal mentation. Musculoskeletal: The patient moves all extremities appropriate. Psychological: The patient is appropriately anxious. DIAGNOSTIC STUDIES/LAB DATA: Electrocardiogram was as discussed with the initial one showing mild ST-segment depression in I and slightly in the inferior leads in V4 and V5 with worsening symptoms. There were significant ST- segment depression in multiple leads worsening and including question of slight ST elevation in V1 and aVR. Chest x-ray showed no acute pathology. Laboratory results showed initial troponin was 0.1, repeated at 0.48. BUN and creatinine were 13 and 0.73 and normal hemoglobin and hematocrit. INR was stable. White count was elevated, repeated at 17,600. OVERALL ASSESSMENT: Ms. Nguyễn presents now with a non-ST elevation myocardial infarction with recurrent ongoing symptoms with worsening ST-segment changes. At this point in time, the risks and benefits of cardiac catheterization were explained to the patient. She understands them and wishes to proceed. Further management will be made pending results of the cardiac catheterization. Thank you very much for asking us to participate in her care. CC: Dr. Iniguez * [id number]/CPS #: [id number] MTDDon
[2016-03-15] MEDS: Atorvastatin* 80 MG TAB PO SCH (17:23)
[2016-03-15] MEDS: Heparin DRIP 25,000 UNITS(*) 25,000 UNITS/500 ML BAG IVPB ONE (19:54)
[2016-03-15] MEDS: Latanoprost 0.005%* 2.5 ml BTL BOTH EYES SCH (21:29)
[2016-03-16 05:47] LABS: BUN/Creatinine Ratio 10.6 (8-20); Calcium 9.2 mg/dL (8.6-10.3); EGFR African American 114.2 (>60); EGFR Non-African American 88.8 (>60); Magnesium 1.9 mg/dL (1.9-2.7); Potassium 3.8 mmol/L (3.5-5.0)
[2016-03-16 05:58] LABS: Hematocrit 37 % (35-47); Hemoglobin 12.4 g/dl (12.0-16.0); Mean Corpuscular HGB Conc 33 g/dl (31-36); Mean Corpuscular Hemoglobin 30 pg (27-31); Mean Corpuscular Volume 91 fL (80-97); Mean Platelet Volume 10 um3 (7.4-10.4); Red Cell Distribution Width 13 % (10.5-15); White Blood Count 7.6 10^3/ul (3.5-10.8)
--- NOTE | 2016-03-16 09:25 | CATH ---
CARDIAC CATHETERIZATION AND INTERVENTIONAL REPORT: DATE OF PROCEDURE: 03/14/16 - ROOM #433 INDICATION FOR THE PROCEDURE: The patient presents with acute coronary syndrome , non-ST elevation myocardial infarction with worsening symptoms. PROCEDURE: Coronary arteriography, left heart catheterization, left ventriculography, balloon angioplasty, and placement of a 3.0 x 20 mm long Synergy drug-eluting stent in the mid LAD, and balloon angioplasty of the mid diagonal branch ostium. DESCRIPTION OF PROCEDURE: The patient was interviewed and examined in the emergency room where the risks and benefits were explained. She understood them and wished to proceed. She was brought to the cardiovascular laboratory where a formal time-out was performed. The right groin area was anesthetized with 1% lidocaine, and right femoral artery was cannulated and a 6.5 sheath was placed. Coronary arteriography was performed using a 5-Slovenian 4 Chance left coronary catheter and 5-Slovenian 4 Chance right coronary catheter. The central aortic pressure was recorded using an angled pigtail catheter. A 5-Slovenian advanced to the ascending aorta. The catheter was then passed across the aortic valve into the left ventricle where ventricular pressure was recorded. Left ventriculography was performed using a hand injection of 8 cc of Omnipaque dye. Following this, the decision was made to intervene into the left anterior descending artery and diagonal branch. Guiding views were obtained using a 6- Slovenian CLS-3 curve guide catheter. The patient had an ACT checked; it was found to be subtherapeutic on heparin therapy for intervention. As such, an Angiomax bolus was given and an Angiomax drip was started, and the heparin drip was stopped. An 0.014 All Star wire was advanced down the left anterior descending artery, and a second 0.014 All Star wire was advanced down into the mid diagonal branch. Kissing balloon angioplasty was performed utilizing a 2.0 x 12 mm long Emerge balloon in the diagonal branch and a 2.5 x 15 mm long Emerge balloon in the LAD. Following this, the 3.0 x 20 mm long Synergy drug- eluting stent was deployed in the mid LAD. The LAD wire was then pulled back and crossed the stent into the diagonal branch and the diagonal wire was pulled back and readvanced down the LAD switching positions. Following this, balloon angioplasty was performed to the ostial area of the diagonal branch utilizing the 2.0 x 12 mm long balloon at high pressure. Following this, the artery was assessed both with the wire in place and the wire removed. Medications given during the case included maintenance of the nitroglycerin drip , titrated for blood pressure. The patient received Versed and intracoronary nitroglycerin in addition to the Angiomax bolus and the Angiomax drip. The patient also received 2.5 mg of Lopressor intravenously. The patient also received fentanyl therapy. The total contrast used was 165 cc of Omnipaque dye. The radiation exposure included 13 minutes of fluoro time. The air kerma radiation was 728 mGy. The DAPA radiation was 4094 microgray per meter squared. RESULTS: LEFT HEART CATHETERIZATION: Central aortic pressure was recorded at 160/75 with a mean of 113. Left ventricular pressure 151/left ventricular end diastolic pressure of 12. LEFT VENTRICULOGRAPHY: Performed in the WOLFF projection using a hand injection with somewhat suboptimal filling. There appeared to be mild distal anterior apical and distal inferior wall hypokinesis with overall ejection fraction appearing approximately 50%. CORONARY ARTERIOGRAPHY: A. Left coronary artery. 1. Left main - there was mild tapering of the distal left main with degree of narrowing noted to be 20-25%. Calcification was seen in the distal left main extending into the proximal LAD. 2. LAD - mild calcification in the proximal portion with a degree of luminal narrowing in the proximal segment of the LAD approximately 35%. The mid LAD appeared to have a critical 95% blockage involving a mid diagonal branch whose ostium also had a 90% blockage. Past this point, in the mid to distal LAD was a 60- 65% lesion. The left anterior descending artery extended to the apical region and onto the distal inferior wall. A high first posteriorly directed diagonal branch showed no significant narrowing. 3. Circumflex artery - a non-dominant vessel supplying small caliber first, second and third obtuse marginal branches with a bifurcating fourth obtuse marginal branch. The ostium of the circumflex appeared to have mild 20% narrowing. B. Right coronary artery - a dominant vessel supplying the PDA and multiple posterior left ventricular branches. There was mild 25% narrowing seen in the proximal portion of the vessel. The mid segment of this vessel had a 60-65% narrowing noted. There was AMPARO-III flow throughout. Of note, the PDA extended long term on the inferior wall, not fully to the apical region. INTERVENTION INTO MID LAD: A. Mid LAD - successful reduction of critical 90% stenosis with balloon angioplasty and placement of a 3.0 x 20 mm long Synergy drug- eluting stent with 0% residual stenosis AMPARO-III flow. No dissection seen. B. Balloon angioplasty to the ostium of mid diagonal branch with reduction of critical 90% lesion with residual stenosis of 20%. No dissection seen. OVERALL ASSESSMENT: Mild left ventricular systolic dysfunction, although suboptimally visualized on hand injection. Critical mid LAD disease involving diagonal branch intervened on as described above. Moderate disease involving the [id number] LAD and mid portion of right coronary artery will be addressed for ischemic burden at a later date. Aggressive anticholesterol medication administration, as well as blood pressure management and dual antiplatelet therapy will be pursued. CC: Dr. Eduardo Iniguez* [id number]/CPS #: [id number] DINO
[2016-03-16] MEDS: Ticagrelor* 90 MG TAB PO SCH ×2 (09:39→20:34)
[2016-03-16] MEDS: Famotidine TAB* 20 MG PO SCH ×2 (09:40→20:34)
[2016-03-16] MEDS: Aspirin Low Dose CHEW TAB* 81 MG PO SCH (09:40)
[2016-03-16] MEDS: Captopril TAB* 12.5 MG PO SCH (09:40)
[2016-03-16] MEDS: Metoprolol Tartrate TAB* 25 MG PO SCH ×3 (09:40→20:34)
[2016-03-16] MEDS: Timolol 0.25% OPHTH.SOLN* BTL BOTH EYES SCH ×2 (09:41→22:11)
[2016-03-16] MEDS: Fluticasone NASAL SPRAY 50MCG* 16 gm SPRAY BTL BOTH NARES SCH (09:41)
[2016-03-16] MEDS: Cyanocobalamin TAB* 500 MCG PO SCH (09:44)
[2016-03-16] MEDS: Lisinopril TAB* 10 MG PO SCH (10:29)
--- NOTE | 2016-03-16 15:43 | PN ---
Subjective Date of Service: 03/16/16 Interval History: patient reports she feels much better this afternoon. Has been ambulating around unit and "doing really well". No CP or SOB. No fevers or chills. Denies LE edema. Objective Active Medications: Acetaminophen (Tylenol Tab*) 650 mg PO Q4H PRN PRN Reason: FEVER/PAIN Last Admin: 03/15/16 02:46 Dose: 650 mg Acetaminophen (Tylenol Tab*) 650 mg PO Q4H PRN PRN Reason: HEADACHE/PAIN Aspirin (Aspirin Low Dose Tab*) 81 mg PO DAILY [facility] Last Admin: 03/16/16 09:40 Dose: 81 mg Atenolol (Tenormin Tab*) 50 mg PO DAILY [facility] Atorvastatin Calcium (Lipitor*) 80 mg PO 1700 [facility] Last Admin: 03/15/16 17:23 Dose: 80 mg Cyanocobalamin (Vitamin B12 Tab*) 1,000 mcg PO DAILY [facility] Last Admin: 03/16/16 09:44 Dose: 1,000 mcg Docusate Sodium (Colace Cap*) 100 mg PO DAILY PRN PRN Reason: CONSTIPATION Famotidine (Pepcid Tab*) 20 mg PO BID [facility] Last Admin: 03/16/16 09:40 Dose: 20 mg Fluticasone Propionate (Flonase Nasal [place] 50mcg*) 2 spray BOTH NARES DAILY [facility] Last Admin: 03/16/16 09:41 Dose: 2 spray Nitroglycerin/Dextrose 25,000 (mcg/ IV Solution) 250 mls @ 6 mls/hr IV .( Initial Rate) [facility] PRN Reason: 10 MCG/MIN Last Admin: 03/14/16 21:02 Dose: 6 mls/hr Sodium Chloride (Ns 0.9% 1000 Ml*) 1,000 mls @ 100 mls/hr IV .per rate [facility] Last Admin: 03/15/16 00:18 Dose: 100 mls/hr Ibuprofen (Motrin Tab*) 400 mg PO Q6H PRN PRN Reason: pain Last Admin: 03/15/16 14:11 Dose: 400 mg Latanoprost (Xalatan 0.005%*) 1 drop BOTH EYES BEDTIME [facility] Last Admin: 03/15/16 21:29 Dose: 1 drop Lisinopril (Prinivil Tab*) 10 mg PO DAILY [facility] Last Admin: 03/16/16 10:29 Dose: 10 mg Metoprolol Tartrate (Lopressor Tab*) 25 mg PO TID [facility] Stop: 03/16/16 23:59 Last Admin: 03/16/16 14:25 Dose: 25 mg Nitroglycerin (Nitroglycerin Tab 0.4 Mg*) 0.4 mg SL Q5M PRN PRN Reason: ANGINA Ondansetron HCl (Zofran Inj*) 4 mg IV Q6H PRN PRN Reason: NAUSEA Sodium Chloride (Sodium Chloride 0.65% Nasal [place]*) 1 spray BOTH NARES Q4H PRN PRN Reason: dry nose Ticagrelor (Brilinta*) 90 mg PO BID [facility] Last Admin: 03/16/16 09:39 Dose: 90 mg Timolol Maleate (Timoptic Ophth.Soln 0.25%) 1 drop BOTH EYES BID [facility] Last Admin: 03/16/16 09:41 Dose: 1 drop Zolpidem Tartrate (Ambien Tab*) 5 mg PO BEDTIME PRN PRN Reason: INSOMNIA Vital Signs 03/15/16 03/15/16 03/15/16 16:00 17:29 17:38 Temperature 97.8 F 98.3 F Pulse Rate 85 Respiratory 18 18 Rate Blood Pressure 168/84 (mmHg) O2 Sat by Pulse 98 Oximetry 03/15/16 03/15/16 03/15/16 20:00 20:08 23:28 Temperature 98.5 F 98.1 F Pulse Rate 88 78 Respiratory 18 18 20 Rate Blood Pressure 141/76 145/83 (mmHg) O2 Sat by Pulse 98 99 Oximetry 03/16/16 03/16/16 03/16/16 03:13 03:33 07:31 Temperature 97.9 F 98.5 F Pulse Rate 78 81 Respiratory 20 16 Rate Blood Pressure 138/70 140/74 (mmHg) O2 Sat by Pulse 99 96 Oximetry 03/16/16 03/16/16 03/16/16 08:00 11:14 14:26 Temperature 98.2 F 98.3 F Pulse Rate 77 87 Respiratory 16 16 16 Rate Blood Pressure 117/65 116/64 (mmHg) O2 Sat by Pulse 98 99 Oximetry Oxygen Devices in Use Now: None Appearance: 70 yo female sitting up in a chair in NAD. A+O x3 Eyes: No Scleral Icterus, PERRLA Ears/Nose/Mouth/Throat: NL Teeth, Lips, Gums, Mucous Membranes Moist Neck: NL Appearance and Movements; NL JVP Respiratory: Symmetrical Chest Expansion and Respiratory Effort, Clear to Auscultation Cardiovascular: NL Sounds; No Murmurs; No JVD, RRR, No Edema Abdominal: NL Sounds; No Tenderness; No Distention Lymphatic: No Cervical Adenopathy Extremities: No Edema Skin: No Rash or Ulcers, No Nodules or Sclerosis Neurological: Alert and Oriented x 3, NL Sensation, NL Gait, NL Muscle Strength and Tone Lines/Tubes/Other Access: Clean, Dry and Intact Peripheral IV Nutrition: Taking PO's Result Diagrams: 03/16/16 05:11 03/16/16 05:11 Additional Lab and Data: Lab Results 03/14/16 03/14/16 03/14/16 Range/Units 18:30 18:30 20:15 WBC 13.7 H (3.5-10.8) 10^3/ul RBC 4.45 (4.0-5.4) 10^6/ul Hgb 13.4 (12.0-16.0) g/dl Hct 41 (35-47) % MCV 91 (80-97) fL MCH 30 (27-31) pg MCHC 33 (31-36) g/dl RDW 14 (10.5-15) % Plt Count 227 (150-450) 10^3/ul MPV 10 (7.4-10.4) um3 Neut % (Auto) 80.6 (38-83) % Lymph % (Auto) 11.8 L (25-47) % Churchill % (Auto) 6.2 (1-9) % Eos % (Auto) 0.5 (0-6) % Baso % (Auto) 0.9 (0-2) % Absolute Neuts (auto) 11.0 H (1.5-7.7) 10^3/ul Absolute Lymphs (auto) 1.6 (1.0-4.8) 10^3/ul Absolute Monos (auto) 0.8 (0-0.8) 10^3/ul Absolute Eos (auto) 0.1 (0-0.6) 10^3/ul Absolute Basos (auto) 0.1 (0-0.2) 10^3/ul Absolute Nucleated RBC 0.01 10^3/ul Nucleated RBC % 0.1 INR (Anticoag Therapy) (0.89-1.11) APTT > 212.0 H* (26.0-36.3) seconds Sodium 139 (133-145) mmol/L Potassium 4.2 (3.5-5.0) mmol/L Chloride 106 (101-111) mmol/L Carbon Dioxide 21 L (22-32) mmol/L Anion Gap 12 H (2-11) mmol/L BUN 14 (6-24) mg/dL Creatinine 0.71 (0.51-0.95) mg/dL Est GFR ( Amer) 105.0 (>60) Est GFR (Non-Af Amer) 81.6 (>60) BUN/Creatinine Ratio 19.7 (8-20) Glucose 159 H (70-100) mg/dL Calcium 9.5 (8.6-10.3) mg/dL Total Bilirubin 0.40 (0.2-1.0) mg/dL AST 34 (13-39) U/L ALT 17 (7-52) U/L Alkaline Phosphatase 62 (34-104) U/L Total Creatine Kinase 35 (10-223) U/L CK-MB (CK-2) 2.0 (0.6-6.3) ng/mL Myoglobin (14.3-65.8) ng/mL Troponin I 0.10 H* (<0.04) ng/mL B-Natriuretic Peptide ( - 100) pg/mL Total Protein 6.3 L (6.4-8.9) g/dL Albumin 4.1 (3.2-5.2) g/dL Globulin 2.2 (2-4) g/dL Albumin/Globulin Ratio 1.9 (1-3) LDL Cholesterol Direct mg/dL 03/14/16 03/14/16 03/14/16 Range/Units 20:55 20:55 20:55 WBC 17.6 H (3.5-10.8) 10^3/ul RBC 4.45 (4.0-5.4) 10^6/ul Hgb 13.5 (12.0-16.0) g/dl Hct 40 (35-47) % MCV 91 (80-97) fL MCH 30 (27-31) pg MCHC 33 (31-36) g/dl RDW 13 (10.5-15) % Plt Count 252 (150-450) 10^3/ul MPV 10 (7.4-10.4) um3 Neut % (Auto) (38-83) % Lymph % (Auto) (25-47) % Churchill % (Auto) (1-9) % Eos % (Auto) (0-6) % Baso % (Auto) (0-2) % Absolute Neuts (auto) (1.5-7.7) 10^3/ul Absolute Lymphs (auto) (1.0-4.8) 10^3/ul Absolute Monos (auto) (0-0.8) 10^3/ul Absolute Eos (auto) (0-0.6) 10^3/ul Absolute Basos (auto) (0-0.2) 10^3/ul Absolute Nucleated RBC 10^3/ul Nucleated RBC % INR (Anticoag Therapy) 0.90 (0.89-1.11) APTT > 212.0 H* (26.0-36.3) seconds Sodium 138 (133-145) mmol/L Potassium 3.6 (3.5-5.0) mmol/L Chloride 107 (101-111) mmol/L Carbon Dioxide 20 L (22-32) mmol/L Anion Gap 11 (2-11) mmol/L BUN 13 (6-24) mg/dL Creatinine 0.73 (0.51-0.95) mg/dL Est GFR ( Amer) 101.7 (>60) Est GFR (Non-Af Amer) 79.0 (>60) BUN/Creatinine Ratio 17.8 (8-20) Glucose 117 H (70-100) mg/dL Calcium 9.5 (8.6-10.3) mg/dL Total Bilirubin 0.40 (0.2-1.0) mg/dL AST 31 (13-39) U/L ALT 17 (7-52) U/L Alkaline Phosphatase 65 (34-104) U/L Total Creatine Kinase 35 (10-223) U/L CK-MB (CK-2) 2.8 (0.6-6.3) ng/mL Myoglobin 33.1 (14.3-65.8) ng/mL Troponin I 0.48 H* (<0.04) ng/mL B-Natriuretic Peptide ( - 100) pg/mL Total Protein 6.6 (6.4-8.9) g/dL Albumin 3.9 (3.2-5.2) g/dL Globulin 2.7 (2-4) g/dL Albumin/Globulin Ratio 1.4 (1-3) LDL Cholesterol Direct 141 mg/dL 03/14/16 Range/Units 20:55 WBC (3.5-10.8) 10^3/ul RBC (4.0-5.4) 10^6/ul Hgb (12.0-16.0) g/dl Hct (35-47) % MCV (80-97) fL MCH (27-31) pg MCHC (31-36) g/dl RDW (10.5-15) % Plt Count (150-450) 10^3/ul MPV (7.4-10.4) um3 Neut % (Auto) (38-83) % Lymph % (Auto) (25-47) % Churchill % (Auto) (1-9) % Eos % (Auto) (0-6) % Baso % (Auto) (0-2) % Absolute Neuts (auto) (1.5-7.7) 10^3/ul Absolute Lymphs (auto) (1.0-4.8) 10^3/ul Absolute Monos (auto) (0-0.8) 10^3/ul Absolute Eos (auto) (0-0.6) 10^3/ul Absolute Basos (auto) (0-0.2) 10^3/ul Absolute Nucleated RBC 10^3/ul Nucleated RBC % INR (Anticoag Therapy) (0.89-1.11) APTT (26.0-36.3) seconds Sodium (133-145) mmol/L Potassium (3.5-5.0) mmol/L Chloride (101-111) mmol/L Carbon Dioxide (22-32) mmol/L Anion Gap (2-11) mmol/L BUN (6-24) mg/dL Creatinine (0.51-0.95) mg/dL Est GFR ( Amer) (>60) Est GFR (Non-Af Amer) (>60) BUN/Creatinine Ratio (8-20) Glucose (70-100) mg/dL Calcium (8.6-10.3) mg/dL Total Bilirubin (0.2-1.0) mg/dL AST (13-39) U/L ALT (7-52) U/L Alkaline Phosphatase (34-104) U/L Total Creatine Kinase (10-223) U/L CK-MB (CK-2) (0.6-6.3) ng/mL Myoglobin (14.3-65.8) ng/mL Troponin I (<0.04) ng/mL B-Natriuretic Peptide 28 ( - 100) pg/mL Total Protein (6.4-8.9) g/dL Albumin (3.2-5.2) g/dL Globulin (2-4) g/dL Albumin/Globulin Ratio (1-3) LDL Cholesterol Direct mg/dL Microbiology and Other Data: Microbiology 03/15/16 02:00 Nasal Screen MRSA (PCR)(AMINAH) - Final Nasal Mrsa Negative Assess/Plan/Problems-Billing Assessment: Ms. Nguyễn is a 70 yo female with a PMH of HTN and GERD who presented to the ED with CP found to have a STEMI - Patient Problems (1) NSTEMI (non-ST elevated myocardial infarction) Comment: - stent to the LAD - continue monitoring on tele per cards - and monitoring of blood pressure - continue BB, statin, ASA, Brillinta - HbgA1C WNLs. (2) GERD (gastroesophageal reflux disease) Comment: - asymptomatic - continue pepcid (3) Full code status Status and Disposition: Inpatient. Continue inpatient monitoring. Plan for DC home tomorrow.
[2016-03-16] MEDS: Atorvastatin* 80 MG TAB PO SCH (16:40)
[2016-03-16] MEDS: Latanoprost 0.005%* 2.5 ml BTL BOTH EYES SCH (22:11)
[2016-03-17 05:30] LABS: Hematocrit 37 % (35-47); Hemoglobin 12.3 g/dl (12.0-16.0); Mean Corpuscular HGB Conc 34 g/dl (31-36); Mean Corpuscular Hemoglobin 30 pg (27-31); Mean Corpuscular Volume 91 fL (80-97); Mean Platelet Volume 10 um3 (7.4-10.4); Red Blood Count 4.03 10^6/ul (4.0-5.4); Red Cell Distribution Width 13 % (10.5-15); White Blood Count 7.5 10^3/ul (3.5-10.8)
[2016-03-17 05:45] LABS: BUN/Creatinine Ratio 14.7 (8-20); Calcium 9.2 mg/dL (8.6-10.3); EGFR African American 110.3 (>60); EGFR Non-African American 85.8 (>60); Potassium 3.6 mmol/L (3.5-5.0)
[2016-03-17] MEDS: Timolol 0.25% OPHTH.SOLN* BTL BOTH EYES SCH (08:18)
[2016-03-17] MEDS: Aspirin Low Dose CHEW TAB* 81 MG PO SCH (08:18)
[2016-03-17] MEDS: Famotidine TAB* 20 MG PO SCH (08:19)
[2016-03-17] MEDS: Cyanocobalamin TAB* 500 MCG PO SCH (08:19)
[2016-03-17] MEDS: Ticagrelor* 90 MG TAB PO SCH (08:19)
[2016-03-17] MEDS: Lisinopril TAB* 10 MG PO SCH (08:20)
[2016-03-17] MEDS: Fluticasone NASAL SPRAY 50MCG* 16 gm SPRAY BTL BOTH NARES SCH (08:24)
[2016-03-17] MEDS ORDERED: Atenolol TAB* 50 MG PO SCH (09:00)
--- NOTE | 2016-03-17 09:57 | DCNOTE ---
Subjective Date of Service: 03/17/16 Interval History: Patient reports she feels better today. Denies any CP or SOB. She feels ready to go home. No fevers or chills. Feels steady on her feet. No N/V/D. Objective Active Medications: Acetaminophen (Tylenol Tab*) 650 mg PO Q4H PRN PRN Reason: FEVER/PAIN Last Admin: 03/15/16 02:46 Dose: 650 mg Acetaminophen (Tylenol Tab*) 650 mg PO Q4H PRN PRN Reason: HEADACHE/PAIN Aspirin (Aspirin Low Dose Tab*) 81 mg PO DAILY [facility] Last Admin: 03/17/16 08:18 Dose: 81 mg Atenolol (Tenormin Tab*) 50 mg PO DAILY [facility] Last Admin: 03/17/16 08:20 Dose: 50 mg Atorvastatin Calcium (Lipitor*) 80 mg PO 1700 [facility] Last Admin: 03/16/16 16:40 Dose: 80 mg Cyanocobalamin (Vitamin B12 Tab*) 1,000 mcg PO DAILY [facility] Last Admin: 03/17/16 08:19 Dose: 1,000 mcg Docusate Sodium (Colace Cap*) 100 mg PO DAILY PRN PRN Reason: CONSTIPATION Famotidine (Pepcid Tab*) 20 mg PO BID [facility] Last Admin: 03/17/16 08:19 Dose: 20 mg Fluticasone Propionate (Flonase Nasal [place] 50mcg*) 2 spray BOTH NARES DAILY [facility] Last Admin: 03/17/16 08:24 Dose: 2 spray Nitroglycerin/Dextrose 25,000 (mcg/ IV Solution) 250 mls @ 6 mls/hr IV .( Initial Rate) [facility] PRN Reason: 10 MCG/MIN Last Admin: 03/14/16 21:02 Dose: 6 mls/hr Sodium Chloride (Ns 0.9% 1000 Ml*) 1,000 mls @ 100 mls/hr IV .per rate [facility] Last Admin: 03/15/16 00:18 Dose: 100 mls/hr Ibuprofen (Motrin Tab*) 400 mg PO Q6H PRN PRN Reason: pain Last Admin: 03/15/16 14:11 Dose: 400 mg Latanoprost (Xalatan 0.005%*) 1 drop BOTH EYES BEDTIME [facility] Last Admin: 03/16/16 22:11 Dose: 1 drop Lisinopril (Prinivil Tab*) 10 mg PO DAILY [facility] Last Admin: 03/17/16 08:20 Dose: 10 mg Nitroglycerin (Nitroglycerin Tab 0.4 Mg*) 0.4 mg SL Q5M PRN PRN Reason: ANGINA Ondansetron HCl (Zofran Inj*) 4 mg IV Q6H PRN PRN Reason: NAUSEA Sodium Chloride (Sodium Chloride 0.65% Nasal [place]*) 1 spray BOTH NARES Q4H PRN PRN Reason: dry nose Ticagrelor (Brilinta*) 90 mg PO BID [facility] Last Admin: 03/17/16 08:19 Dose: 90 mg Timolol Maleate (Timoptic Ophth.Soln 0.25%) 1 drop BOTH EYES BID [facility] Last Admin: 03/17/16 08:18 Dose: 1 drop Zolpidem Tartrate (Ambien Tab*) 5 mg PO BEDTIME PRN PRN Reason: INSOMNIA Vital Signs 03/16/16 03/16/16 03/16/16 11:14 14:26 15:44 Temperature 98.2 F 98.3 F 98.0 F Pulse Rate 77 87 77 Respiratory 16 16 18 Rate Blood Pressure 117/65 116/64 118/65 (mmHg) O2 Sat by Pulse 98 99 100 Oximetry 03/16/16 03/16/16 03/16/16 19:54 20:00 23:38 Temperature 98.0 F 99.0 F Pulse Rate 81 80 Respiratory 18 18 20 Rate Blood Pressure 120/68 120/54 (mmHg) O2 Sat by Pulse 98 98 Oximetry 03/17/16 03/17/16 03:51 07:15 Temperature 98.5 F 97.7 F Pulse Rate 83 82 Respiratory 20 16 Rate Blood Pressure 130/75 110/63 (mmHg) O2 Sat by Pulse 99 99 Oximetry Oxygen Devices in Use Now: None Appearance: 70 yo female sitting up in a chair iin NAD> A+O x3 Eyes: No Scleral Icterus, PERRLA Ears/Nose/Mouth/Throat: NL Teeth, Lips, Gums Neck: NL Appearance and Movements; NL JVP, Trachea Midline Respiratory: Symmetrical Chest Expansion and Respiratory Effort, Clear to Auscultation Cardiovascular: NL Sounds; No Murmurs; No JVD, RRR, No Edema Abdominal: NL Sounds; No Tenderness; No Distention Lymphatic: No Cervical Adenopathy Extremities: No Edema, No Clubbing, Cyanosis, - - right groin cath site has large area of eccymosis but appears to be healing with some areas of yellow - no hematome noted. nontender. Neurological: Alert and Oriented x 3, NL Sensation, NL Gait, NL Muscle Strength and Tone Lines/Tubes/Other Access: Clean, Dry and Intact Peripheral IV Nutrition: Taking PO's Result Diagrams: 03/17/16 05:04 03/17/16 05:04 Additional Lab and Data: Lab Results 03/14/16 03/14/16 03/14/16 Range/Units 18:30 18:30 20:15 WBC 13.7 H (3.5-10.8) 10^3/ul RBC 4.45 (4.0-5.4) 10^6/ul Hgb 13.4 (12.0-16.0) g/dl Hct 41 (35-47) % MCV 91 (80-97) fL MCH 30 (27-31) pg MCHC 33 (31-36) g/dl RDW 14 (10.5-15) % Plt Count 227 (150-450) 10^3/ul MPV 10 (7.4-10.4) um3 Neut % (Auto) 80.6 (38-83) % Lymph % (Auto) 11.8 L (25-47) % Finney % (Auto) 6.2 (1-9) % Eos % (Auto) 0.5 (0-6) % Baso % (Auto) 0.9 (0-2) % Absolute Neuts (auto) 11.0 H (1.5-7.7) 10^3/ul Absolute Lymphs (auto) 1.6 (1.0-4.8) 10^3/ul Absolute Monos (auto) 0.8 (0-0.8) 10^3/ul Absolute Eos (auto) 0.1 (0-0.6) 10^3/ul Absolute Basos (auto) 0.1 (0-0.2) 10^3/ul Absolute Nucleated RBC 0.01 10^3/ul Nucleated RBC % 0.1 INR (Anticoag Therapy) (0.89-1.11) APTT > 212.0 H* (26.0-36.3) seconds Sodium 139 (133-145) mmol/L Potassium 4.2 (3.5-5.0) mmol/L Chloride 106 (101-111) mmol/L Carbon Dioxide 21 L (22-32) mmol/L Anion Gap 12 H (2-11) mmol/L BUN 14 (6-24) mg/dL Creatinine 0.71 (0.51-0.95) mg/dL Est GFR ( Amer) 105.0 (>60) Est GFR (Non-Af Amer) 81.6 (>60) BUN/Creatinine Ratio 19.7 (8-20) Glucose 159 H (70-100) mg/dL Calcium 9.5 (8.6-10.3) mg/dL Total Bilirubin 0.40 (0.2-1.0) mg/dL AST 34 (13-39) U/L ALT 17 (7-52) U/L Alkaline Phosphatase 62 (34-104) U/L Total Creatine Kinase 35 (10-223) U/L CK-MB (CK-2) 2.0 (0.6-6.3) ng/mL Myoglobin (14.3-65.8) ng/mL Troponin I 0.10 H* (<0.04) ng/mL B-Natriuretic Peptide ( - 100) pg/mL Total Protein 6.3 L (6.4-8.9) g/dL Albumin 4.1 (3.2-5.2) g/dL Globulin 2.2 (2-4) g/dL Albumin/Globulin Ratio 1.9 (1-3) LDL Cholesterol Direct mg/dL 03/14/16 03/14/16 03/14/16 Range/Units 20:55 20:55 20:55 WBC 17.6 H (3.5-10.8) 10^3/ul RBC 4.45 (4.0-5.4) 10^6/ul Hgb 13.5 (12.0-16.0) g/dl Hct 40 (35-47) % MCV 91 (80-97) fL MCH 30 (27-31) pg MCHC 33 (31-36) g/dl RDW 13 (10.5-15) % Plt Count 252 (150-450) 10^3/ul MPV 10 (7.4-10.4) um3 Neut % (Auto) (38-83) % Lymph % (Auto) (25-47) % [place] % (Auto) (1-9) % Eos % (Auto) (0-6) % Baso % (Auto) (0-2) % Absolute Neuts (auto) (1.5-7.7) 10^3/ul Absolute Lymphs (auto) (1.0-4.8) 10^3/ul Absolute Monos (auto) (0-0.8) 10^3/ul Absolute Eos (auto) (0-0.6) 10^3/ul Absolute Basos (auto) (0-0.2) 10^3/ul Absolute Nucleated RBC 10^3/ul Nucleated RBC % INR (Anticoag Therapy) 0.90 (0.89-1.11) APTT > 212.0 H* (26.0-36.3) seconds Sodium 138 (133-145) mmol/L Potassium 3.6 (3.5-5.0) mmol/L Chloride 107 (101-111) mmol/L Carbon Dioxide 20 L (22-32) mmol/L Anion Gap 11 (2-11) mmol/L BUN 13 (6-24) mg/dL Creatinine 0.73 (0.51-0.95) mg/dL Est GFR ( Amer) 101.7 (>60) Est GFR (Non-Af Amer) 79.0 (>60) BUN/Creatinine Ratio 17.8 (8-20) Glucose 117 H (70-100) mg/dL Calcium 9.5 (8.6-10.3) mg/dL Total Bilirubin 0.40 (0.2-1.0) mg/dL AST 31 (13-39) U/L ALT 17 (7-52) U/L Alkaline Phosphatase 65 (34-104) U/L Total Creatine Kinase 35 (10-223) U/L CK-MB (CK-2) 2.8 (0.6-6.3) ng/mL Myoglobin 33.1 (14.3-65.8) ng/mL Troponin I 0.48 H* (<0.04) ng/mL B-Natriuretic Peptide ( - 100) pg/mL Total Protein 6.6 (6.4-8.9) g/dL Albumin 3.9 (3.2-5.2) g/dL Globulin 2.7 (2-4) g/dL Albumin/Globulin Ratio 1.4 (1-3) LDL Cholesterol Direct 141 mg/dL 03/14/16 Range/Units 20:55 WBC (3.5-10.8) 10^3/ul RBC (4.0-5.4) 10^6/ul Hgb (12.0-16.0) g/dl Hct (35-47) % MCV (80-97) fL MCH (27-31) pg MCHC (31-36) g/dl RDW (10.5-15) % Plt Count (150-450) 10^3/ul MPV (7.4-10.4) um3 Neut % (Auto) (38-83) % Lymph % (Auto) (25-47) % [place]ney % (Auto) (1-9) % Eos % (Auto) (0-6) % Baso % (Auto) (0-2) % Absolute Neuts (auto) (1.5-7.7) 10^3/ul Absolute Lymphs (auto) (1.0-4.8) 10^3/ul Absolute Monos (auto) (0-0.8) 10^3/ul Absolute Eos (auto) (0-0.6) 10^3/ul Absolute Basos (auto) (0-0.2) 10^3/ul Absolute Nucleated RBC 10^3/ul Nucleated RBC % INR (Anticoag Therapy) (0.89-1.11) APTT (26.0-36.3) seconds Sodium (133-145) mmol/L Potassium (3.5-5.0) mmol/L Chloride (101-111) mmol/L Carbon Dioxide (22-32) mmol/L Anion Gap (2-11) mmol/L BUN (6-24) mg/dL Creatinine (0.51-0.95) mg/dL Est GFR ( Amer) (>60) Est GFR (Non-Af Amer) (>60) BUN/Creatinine Ratio (8-20) Glucose (70-100) mg/dL Calcium (8.6-10.3) mg/dL Total Bilirubin (0.2-1.0) mg/dL AST (13-39) U/L ALT (7-52) U/L Alkaline Phosphatase (34-104) U/L Total Creatine Kinase (10-223) U/L CK-MB (CK-2) (0.6-6.3) ng/mL Myoglobin (14.3-65.8) ng/mL Troponin I (<0.04) ng/mL B-Natriuretic Peptide 28 ( - 100) pg/mL Total Protein (6.4-8.9) g/dL Albumin (3.2-5.2) g/dL Globulin (2-4) g/dL Albumin/Globulin Ratio (1-3) LDL Cholesterol Direct mg/dL Microbiology and Other Data: Microbiology 03/15/16 02:00 Nasal Screen MRSA (PCR)(AMINAH) - Final Nasal Mrsa Negative Assess/Plan/Problems-Billing Assessment: Ms. Nguyễn is a 70 yo female with a PMH of HTN and GERD who presented to the ED with CP found to have a STEMI - Patient Problems (1) NSTEMI (non-ST elevated myocardial infarction) Comment: - Trop peaked at 1.5 - stent to the LAD - Blood pressure stable; no arrythmias noted on tele - continue BB, statin, ASA, Brillinta - HbgA1C WNLs. - pt states understanding of discharge plan. - ok to DC per Cards (2) GERD (gastroesophageal reflux disease) Comment: - asymptomatic - continue pepcid (3) Full code status Status and Disposition: Inpatient. Continue inpatient monitoring. Plan for DC home today
[2016-03-17 10:26] VITALS: BP 114/64
--- NOTE | 2016-03-17 22:31 | DS ---
DISCHARGE SUMMARY: DATE OF ADMISSION: 03/14/16 DATE OF DISCHARGE: 03/17/16 PROVIDER: STARLA Arora. ATTENDING PHYSICIAN: Dr. Munoz *(report dictated by STARLA Arora). PRIMARY CARE PROVIDER: Dr. Iniguez. SYSTEMS NAVIGATOR: Dr. Tipton. PRIMARY DIAGNOSES: 1. Non-ST segment elevation myocardial infarction. 2. Cardiac catheterization with PCI, showed critical 90% stenosis in the mid LAD, in which balloon angioplasty and placement of a drug-eluting stent was performed as well as balloon angioplasty to the ostium of the mid diagonal branch with reduction of critical 90% lesion with residual stenosis of 20% 3. Hypertension. SECONDARY DIAGNOSES: 1. Gastroesophageal reflux disease. 2. Glaucoma. 3. Macular degeneration. DISCHARGE MEDICATIONS: 1. Pepcid 20 mg p.o. b.i.d. 2. Vitamin B12 1000 mcg p.o. daily. 3. Vitamin D3 5000 units p.o. daily. 4. Azelastine 0.15% 1 spray nasal b.i.d. p.r.n. 5. Aspirin 81 mg p.o. daily. 6. Latanoprost 1 drop both eyes bedtime. 7. Timolol 0.25% 1 drop both eyes b.i.d. 8. Atenolol 50 mg p.o. daily (please note this was increased from 25 mg daily previously). NEW MEDICATIONS ON DISCHARGE: 1. Brilinta 90 mg p.o. b.i.d. 2. Lisinopril 10 mg p.o. daily. 3. Atorvastatin 80 mg p.o. daily. HISTORY OF PRESENT ILLNESS AND HOSPITAL COURSE: Please see history and physical by Jude Colbert NP, for full admission details. In summary, this is a 70-year-old female with a past medical history of hypertension, GERD, glaucoma , and history of macular degeneration, who presented to the emergency department on 03/14/16 with complaints of chest pain over the past week that progressively worsened. She reported chest pain with minimal exertion as well as occasionally nauseated and short of breath. She saw her primary care provider the day before admission, and at the time was not exhibiting any of the symptoms, but there was concern that she had subtle EKG changes and was set up for an outpatient stress test and sent home on nitroglycerin. The patient was supposed to undergo the outpatient stress test on Tuesday, and the patient reports Tuesday, her symptoms returned as crushing chest pressure where she had to lay down, she took 3 nitro at home and the nitro did not relieve the pain, so she called 911 and was brought to the emergency room for further evaluation. On evaluation in the emergency department, her initial troponin was 0.10. She continued to have a significant amount of chest pressure in the emergency department and had some noted EKG changes and initially a STEMI was called and was taken to the mobile lab technician emergently. Dr. Tipton, the social organization professor and interventionalist, took the patient to the cardiac mobile lab technician and diagnosed the patient with acute coronary syndrome with a non-ST elevation myocardial infarction. The cardiac catheterization showed critical 90% stenosis in the mid LAD, in which balloon angioplasty and placement of a drug-eluting stent was performed as well as balloon angioplasty to the ostium of the mid diagonal branch with reduction of critical 90% lesion with residual stenosis of 20%. No dissection was seen. Overall assessment from Dr. Tipton was dictated as "mild left ventricular systolic dysfunction, although suboptimally visualized on hand injection. Critical mid LAD disease involving a diagonal branch intervened on as described above. Moderate disease involving the mid to distal LAD and mid portion of the right coronary artery will be addressed for ischemic burden at a later date. Aggressive anticholesterol medication administration, as well as blood pressure management and dual-antiplatelet therapy will be pursued." The patient initially was monitored post cath in the ICU overnight. She has done well throughout her hospitalization. She then was monitored on the telemetry unit where she has tolerated change in medications and has no noted arrhythmias on telemetry monitoring. She has been ambulating around the unit without difficulty and has not had a return of chest pain or shortness of breath. The patient is stable for discharge home today. Please note the patient had a right femoral cath site, which does have some ecchymosis but no hematoma noted. She underwent a transthoracic echocardiogram the day after cardiac catheterization, which showed "the mid anterior and apical anterior wall segments are hypokinetic. The aortic valve leaflets are mildly thickened. There is no evidence for aortic stenosis. There is trace to mild mitral regurgitation. There is trace tricuspid regurgitation. Unable to estimate the right ventricular systolic pressure. There is no significant pericardial effusion." DISCHARGE PLAN: 1. The patient is stable for discharge to home. 2. Follow up with Dr. Iniguez on 03/19/16 at 10:15 a.m. 3. Follow up with Dr. Tal Tipton on 03/22/16 at 3 p.m. 4. We discussed with the patient to discuss with her PCP as well as her social organization professor possible cardiac rehabilitation. I believe the patient would be a good candidate. TIME SPENT: Approximately 60 minutes was spent on this discharge. AMADOU RASHID NP CC: Dr. Iniguez * [id number]/CPS #: [id number] DINO
== END 2016-03-17 12:10 | disposition home or self-care (01) | DRG 247 ==
LOC: ED 18:08 → CHICATH 21:34 → ICU 23:03 → MEDTELE 03-15 17:13
PROVIDERS: ADMIT Internal Medicine Cardiovascular Disease; ATTEND Internal Medicine
PROC: 027034Z Dilation of Coronary Artery, One Artery with Drug-eluting Intraluminal Device, Percutaneous Approach (ICD-10-PCS; 2016-03-14)
PROC: 02703ZZ Dilation of Coronary Artery, One Artery, Percutaneous Approach (ICD-10-PCS; 2016-03-14)
PROC: B2151ZZ Fluoroscopy of Left Heart using Low Osmolar Contrast (ICD-10-PCS; 2016-03-14)
PROC: B2111ZZ Fluoroscopy of Multiple Coronary Arteries using Low Osmolar Contrast (ICD-10-PCS; 2016-03-14)
PROC: 4A023N7 Measurement of Cardiac Sampling and Pressure, Left Heart, Percutaneous Approach (ICD-10-PCS; principal; 2016-03-14 15:00)
DX: I21.4 Non-ST elevation (NSTEMI) myocardial infarction (principal); I08.1 Rheumatic disorders of both mitral and tricuspid valves; I10 Essential (primary) hypertension; K21.9 Gastro-esophageal reflux disease without esophagitis; H40.9 Unspecified glaucoma; H35.30 Unspecified macular degeneration; Z79.82 Long term (current) use of aspirin; Z82.49 Family history of ischemic heart disease and other diseases of the circulatory system; Z88.5 Allergy status to narcotic agent; Z88.1 Allergy status to other antibiotic agents; Z88.0 Allergy status to penicillin
CPT/HCPCS: 36415; 71010; 80048; 80053; 80061; 82550; 82553; 83036; 83721; 83735; 83874; 83880; 84443; 84484; 85025; 85027; 85610; 85730; 86850; 86900; 86901; 87641; 93005; 93306; A9270-GY; C1725; C1760; C1769; C1876; C1887; C9606-LD; J0583; J1644; J2250; J2270; J3010; J3490

== ENCOUNTER 2018-09-13 07:00 | Day surgery (SDC) | payer MEDICARE, BC ==
[~2018-09-13 07:00] MED LIST: Acetaminophen TAB* 325 MG PO PRN; Buffered Lidocaine 1% SYRIN* 1 ML/SYRINGE INTRADERM ONE
[2018-09-13] MEDS ORDERED: Midazolam* 1 MG/ML 5 ML VIAL (5 MG) ONE (08:26)
[2018-09-13] MEDS ORDERED: Propofol* 10 MG/ML 20 ML BTL ONE (09:18)
[2018-09-13] MEDS ORDERED: Lidocaine 2% PF * 5 ML VIAL ONE (09:18)
--- NOTE | 2018-09-13 10:13 | OP ---
OPERATIVE REPORT: DATE OF OPERATION: DATE OF : 47 SURGEON: Angel Luis Hawk MD. PRE-OP DIAGNOSES: 1. Cataract, left. 2. Glaucoma, left. POST-OP DIAGNOSES: 1. Cataract, left. 2. Glaucoma, left. OPERATIVE PROCEDURE: Extracapsular cataract extraction with intraocular lens implant and iStent, lef t eye. PROCEDURE: The patient was brought to the operating room after being given 1/2% Alcaine with epineph rine drops in the preoperative area. The eye was prepped and draped in the usual sterile fashion. S terile drape and eyelid speculum were placed. Again, topical 1/2% Alcaine with epinephrine was given . A paracentesis incision was made at the 3 o'clock position with the No. 75 blade. Clear cornea in cision 2.2 x 2.2-mm was created at the 6 o'clock position starting at the anterior limbus using the 2 .2-mm keratome. The anterior chamber was irrigated with 0.4 mL of 1% non-preservative intracameral l idocaine and filled with DisCoVisc. A capsulorrhexis was completed using the cystotome and the Utrat a forceps. Hydrodissection was performed with balanced salt solution. The lens nucleus was removed w ith the Phacoemulsification handpiece without incident. Cortex was removed with the irrigation-aspir ation handpiece. The capsular bag was re-inflated using DisCoVisc and an [id number] diopter implant wa s inserted with the shooter followed by an iStent inject inserted at the 8 o'clock and 10 o'clock pos itions with the shooter. The lens was oriented to the 85 degree meridian. Horizontal reference martina inated with the patient in seated in the preoperative area. The irrigation-aspiration handpiece was used to remove all residual DisCoVisc. The eye was refilled with balanced salt solution and the woun d checked and found to be watertight. Topical Maxitrol drops were given. [id number]/[facility] #: [id number]
[2018-09-13 10:51] VITALS: BP 102/83
[2018-09-13] MEDS ORDERED: Ketorolac 0.5% OPHTH (NF) 0.5 % 5 ML BTL ONE (12:20)
[2018-09-13] MEDS ORDERED: acetaZOLAMIDE TAB* 250 MG ONE (12:20)
[2018-09-13] MEDS ORDERED: Povidone Iodine 5% OPTH* 30 ML BTL ONE (12:20)
[2018-09-13] MEDS ORDERED: Neomycin/Polymy/Dex OPTH.SUSP* MAXITROL 0.1% 5 ML ONE (12:20)
[2018-09-13] MEDS ORDERED: Lidocaine 2% w/ EPI 1:200,000* 20 ML VIAL ONE (12:20)
[2018-09-13] MEDS ORDERED: Phenylephrine OPHTH SOL 2.5%* 2 ML ONE (12:20)
[2018-09-13] MEDS ORDERED: Proparacaine 0.5% OPHTH.SOL* 15 ML BTL ONE (12:20)
[2018-09-13] MEDS ORDERED: Cyclopentolate 1% OPTH.SOL* 2 ML BTL ONE (12:20)
[2018-09-13] MEDS ORDERED: Lidocaine 1% MPF ** 5 ML VIAL ONE (12:20)
== END 2018-09-13 10:20 | disposition home or self-care (01) ==
LOC: OREAST 07:00
PROVIDERS: ATTEND Specialist
DX: H25.812 Combined forms of age-related cataract, left eye (principal); H40.1131 Primary open-angle glaucoma, bilateral, mild stage; H35.3223 Exudative age-related macular degeneration, left eye, with inactive scar; H35.372 Puckering of macula, left eye; H33.8 Other retinal detachments; H44.23 Degenerative myopia, bilateral; Z88.0 Allergy status to penicillin; I10 Essential (primary) hypertension; K21.9 Gastro-esophageal reflux disease without esophagitis; I25.10 Atherosclerotic heart disease of native coronary artery without angina pectoris; I25.2 Old myocardial infarction; Z95.5 Presence of coronary angioplasty implant and graft
CPT/HCPCS: A9270-GY; C1783; J2250; J2704; V2787

== ENCOUNTER 2018-09-20 06:28 | Day surgery (SDC) | payer MEDICARE, BC ==
[~2018-09-20 06:28] MED LIST changes: -Acetaminophen TAB* 325 MG PO PRN
[2018-09-20] MEDS ORDERED: Midazolam* 1 MG/ML 2 ML VIAL (2 MG) ONE (07:18)
[2018-09-20 08:08] VITALS: BP 133/71
--- NOTE | 2018-09-20 09:08 | OP ---
AMENDED REPORT NOW INCLUDES DATE OF OPERATION - ESIGNED BEFORE ADJUSTMENT * DATE OF OPERATION: 09/20/18 - [facility] DATE OF : 47 SURGEON: Angel Luis Hawk M.D. PREOPERATIVE DIAGNOSES: Cataract right eye and glaucoma. POSTOPERATIVE DIAGNOSES: Cataract right eye and glaucoma. OPERATIVE PROCEDURE: Extracapsular cataract extraction with intraocular lens implant right eye and iStent. DESCRIPTION OFPROCEDURE: The patient was brought to the operating room after being given 1/2% Alcaine with epinephrine drops in the preoperative area. The eye was prepped and draped in the usual sterile fashion. Sterile drape and eyelid speculum were placed. Again, topical 1/2% Alcaine with epinephrine was given. A paracentesis incision was made at the 9 o'clock position with the No.75 blade. Clear cornea incision 2.2 x 2.2-mm was created at the 12 o'clock position starting at the anterior limbus using the 2.2-mm keratome. The anterior chamber was irrigated with 0.4 mL of 1% non-preservative intracameral lidocaine and filled with DisCoVisc. A capsulorrhexis was completed using the cystotome and the Utrata forceps. Hydrodissection was performed with balanced salt solution. The lens nucleus was removed with the Phacoemulsification handpiece without incident. Cortex was removed with the irrigation-aspiration handpiece. The capsular bag was re-inflated using DisCoVisc and an [id number] implant was inserted with the shooter followed by an iStent inject inserted at the 1 o'clock and 4 o'clock positions with the shooter. The irrigation- aspiration handpiece was used to remove all residual DisCoVisc. The eye was refilled with balanced salt solution and the wound checked and found to be watertight. Topical Maxitrol drops were given. [id number]/[facility] #: [id number] MTDD
[2018-09-20] MEDS ORDERED: Lidocaine 1% MPF ** 5 ML VIAL ONE (14:19)
[2018-09-20] MEDS ORDERED: Neomycin/Polymy/Dex OPTH.SUSP* MAXITROL 0.1% 5 ML ONE (14:19)
[2018-09-20] MEDS ORDERED: Proparacaine 0.5% OPHTH.SOL* 15 ML BTL ONE (14:19)
[2018-09-20] MEDS ORDERED: Lidocaine 2% w/ EPI 1:200,000* 20 ML VIAL ONE (14:19)
[2018-09-20] MEDS ORDERED: acetaZOLAMIDE TAB* 250 MG ONE (14:19)
[2018-09-20] MEDS ORDERED: Ketorolac 0.5% OPHTH (NF) 0.5 % 5 ML BTL ONE (14:19)
[2018-09-20] MEDS ORDERED: Phenylephrine OPHTH SOL 2.5%* 2 ML ONE (14:19)
[2018-09-20] MEDS ORDERED: Cyclopentolate 1% OPTH.SOL* 2 ML BTL ONE (14:19)
[2018-09-20] MEDS ORDERED: Povidone Iodine 5% OPTH* 30 ML BTL ONE (14:19)
== END 2018-09-20 08:19 | disposition home or self-care (01) ==
LOC: OREAST 06:28
PROVIDERS: ATTEND Specialist
DX: H25.811 Combined forms of age-related cataract, right eye (principal); H40.1131 Primary open-angle glaucoma, bilateral, mild stage; H35.3223 Exudative age-related macular degeneration, left eye, with inactive scar; H35.372 Puckering of macula, left eye; H44.23 Degenerative myopia, bilateral; I25.10 Atherosclerotic heart disease of native coronary artery without angina pectoris; I25.2 Old myocardial infarction; Z95.5 Presence of coronary angioplasty implant and graft; K21.9 Gastro-esophageal reflux disease without esophagitis; M19.90 Unspecified osteoarthritis, unspecified site
CPT/HCPCS: A9270-GY; C1783; J2250; V2632

== ENCOUNTER 2020-10-09 17:09 | Observation (INO) ==
[2020-10-09 20:20] LABS: ALT 27 U/L (7-52); AST 30 U/L (13-39); Albumin 4.3 g/dL (3.2-5.2); Albumin/Globulin Ratio 1.4 (1-3); Alkaline Phosphatase 128 U/L (35-149); Anion Gap 11 mmol/L (2-11); Blood Urea Nitrogen 20 mg/dL (6-24); C Reactive Protein 82.78 mg/L (<8.01); CO2 Carbon Dioxide 25 mmol/L (22-32); Calcium 9.8 mg/dL (8.6-10.3); Chloride 96 mmol/L (101-111); EGFR African American 36.1 (>60); EGFR Non-African American 29.9 (>60); Glucose 118 mg/dL (70-100); Lipase 32 U/L (11.0-82.0); Sodium 132 mmol/L (135-145); Total Protein 7.3 g/dL (6.4-8.9)
[2020-10-09] MEDS ORDERED: Lactated Ringers 1000 ml BAG IV.FLUID IV ONE (20:32)
[2020-10-09 21:02] LABS: Hematocrit 41 % (35-47); Hemoglobin 13.7 g/dL (12.0-16.0); Mean Corpuscular HGB Conc 34 g/dL (31-36); Mean Corpuscular Hemoglobin 32 pg (27-31); Mean Corpuscular Volume 94 fL (80-97); Mean Platelet Volume 10.5 fL (7.4-10.4); Platelet Count 189 10^3/uL (150-450); Red Blood Count 4.33 10^6 /uL (3.70-4.87); Red Cell Distribution Width 13 % (10-15); White Blood Count 37.6 10^3/uL (3.5-10.8)
[2020-10-09 21:04] LABS: RBC Morphology Normal (Normal); Toxic Granulation 2+
[2020-10-09 21:05] LABS: ABS Lymphocytes 1.9 10^3/ul (1.0-4.8); ABS Monocytes 1.3 10^3/ul (0-0.8); ABS Neutrophils 34.4 10^3/ul (1.5-7.7); Eosinophil % 0.1 %
[2020-10-09] MEDS ORDERED: Cefepime 2 GM in NS 0.9% 50 ML 50 ML IVPB ONE (21:20)
[2020-10-09 21:22] LABS: Activated Partial Thrombo Time 26.3 seconds (26.0-38.0); INR 1.01 (0.86-1.15)
[2020-10-09 21:34] LABS: Troponin I 0.06 ng/mL (<0.03)
[2020-10-09] MEDS ORDERED: Vancomycin 750 MG in NS 0.9% 250 ML IVPB ONE (22:00)
[2020-10-09] MEDS ORDERED: Cefepime 2 GM IV - ED ONCE IV ONE (22:00)
[2020-10-09] MEDS ORDERED: Vancomycin 750 MG in NS 0.9% 250 ml 250 ML IVPB SCH (22:00)
[2020-10-09] MEDS ORDERED: Lactated Ringers 1000 ml BAG 1,000 ML IV ONE (22:34)
[2020-10-10] MEDS ORDERED: Enoxaparin 40 MG/0.4 ML SYR SUBCUT SCH (01:00)
[2020-10-10] MEDS ORDERED: Ondansetron ODT 4 mg TAB 4 MG TAB SL PRN (01:06)
[2020-10-10 04:23] LABS: Hematocrit 34 % (35-47); Hemoglobin 11.1 g/dL (12.0-16.0); Mean Corpuscular HGB Conc 33 g/dL (31-36); Mean Corpuscular Hemoglobin 31 pg (27-31); Mean Corpuscular Volume 95 fL (80-97); Mean Platelet Volume 9.5 fL (7.4-10.4); Platelet Count 156 10^3/uL (150-450); Red Blood Count 3.57 10^6 /uL (3.70-4.87); Red Cell Distribution Width 13 % (10-15); White Blood Count 33.7 10^3/uL (3.5-10.8)
[2020-10-10 04:27] LABS: Urine Appearance Clear; Urine Bilirubin Negative (Negative); Urine Blood Negative (Negative); Urine Color Straw; Urine Creatinine Concentration 41.6 mg/dL; Urine Glucose Negative (Negative); Urine Ketones Negative (Negative); Urine Nitrite Negative (Negative); Urine Protein Negative (Negative); Urine Specific Gravity 1.004 (1.002-1.030); Urine Urobilinogen Negative (Negative)
[2020-10-10 04:38] LABS: Anion Gap 10 mmol/L (2-11); Blood Urea Nitrogen 16 mg/dL (6-24); CO2 Carbon Dioxide 24 mmol/L (22-32); Calcium 8.6 mg/dL (8.6-10.3); Chloride 102 mmol/L (101-111); EGFR African American 52.8 (>60); EGFR Non-African American 43.6 (>60); Glucose 101 mg/dL (70-100); Potassium 3.7 mmol/L (3.5-5.0); Sodium 136 mmol/L (135-145)
[2020-10-10 04:42] LABS: Urine Bacteria Absent (Absent); Urine Red Blood Cell Absent (Absent); Urine White Blood Cell Trace(0-5/hpf) (Absent)
[2020-10-10 04:48] LABS: Troponin I 0.03 ng/mL (<0.03)
[2020-10-10] MEDS ORDERED: Potassium Chlor 20 meq TAB.ER PO ONE (04:58)
[2020-10-10 04:59] LABS: ABS Lymphocytes 1.3 10^3/ul (1.0-4.8); ABS Monocytes 1.5 10^3/ul (0-0.8); ABS Neutrophils 30.8 10^3/ul (1.5-7.7); Lymphocyte % 3.9 %
[2020-10-10] MEDS: Enoxaparin 30 MG/0.3 ML SYR SUBCUT SCH (08:44)
[2020-10-10] MEDS: Magic MouthWash2-BEN/MAAL/LIDO/NYST 240 ML BTL (alt formulation) SWISH SPIT SCH ×4 (08:54→21:30)
[2020-10-10] MEDS: Lactated Ringers 1000 ml BAG 1,000 ML IV SCH ×2 (08:55→21:30)
[2020-10-10] MEDS ORDERED: CMCS: Simvastatin 20 mg TAB (NF) PO SCH (21:00)
[2020-10-11] MEDS: Enoxaparin 30 MG/0.3 ML SYR SUBCUT SCH (08:17)
[2020-10-11] MEDS: Magic MouthWash2-BEN/MAAL/LIDO/NYST 240 ML BTL (alt formulation) SWISH SPIT SCH ×2 (08:18→12:54)
[2020-10-11 08:37] LABS: Hematocrit 31 % (35-47); Hemoglobin 10.7 g/dL (12.0-16.0); Mean Corpuscular HGB Conc 34 g/dL (31-36); Mean Corpuscular Hemoglobin 32 pg (27-31); Mean Corpuscular Volume 93 fL (80-97); Mean Platelet Volume 9.3 fL (7.4-10.4); Platelet Count 172 10^3/uL (150-450); Red Blood Count 3.34 10^6 /uL (3.70-4.87); Red Cell Distribution Width 13 % (10-15); White Blood Count 25.1 10^3/uL (3.5-10.8)
[2020-10-11 08:45] LABS: Calcium 8.8 mg/dL (8.6-10.3); EGFR African American 87.6 (>60); EGFR Non-African American 72.4 (>60); Potassium 3.6 mmol/L (3.5-5.0)
[2020-10-11 09:21] LABS: ABS Lymphocytes 1.2 10^3/ul (1.0-4.8); ABS Monocytes 1.1 10^3/ul (0-0.8); ABS Neutrophils 22.8 10^3/ul (1.5-7.7); Eosinophil % 0.1 %; Lymphocyte % 4.8 %
[2020-10-11 13:44] VITALS: BP 105/54
== END 2020-10-11 16:30 | disposition home or self-care (01) ==
LOC: ED 17:09 → MED 17:09
PROVIDERS: ADMIT Internal Medicine; ATTEND Internal Medicine